=== PATIENT | female | born 1990 | race Caucasian/White ===

== ENCOUNTER 2025-10-16 02:21 | Day surgery (SDC) | payer OTHER, SELFPAY ==
--- OUTSIDE RECORDS SUMMARY | 2019-10-15 04:15 | XMS_ITS | Continuity of Care Document ---
Author Organization [facility] [employer] Address [address] [place] [address] Phone Care Team Providers Care Container Packer Operator Name Role Phone Adi Mckeon Unavailable Unavailable Allergies, Adverse Reactions, Alerts Substance Reaction Status Criticality No Known Allergies Active No Inform ation Medications Medication Instructions Dosage Dose Quantity Effective Dates (start - stop) Status Indication Fill Status Comments triamcinolon e acetonide 0.5 % topical cream apply by topical route 2 times every day a thin layer to the affected area(s) 25 MG 1 tablet 9 - Active amitriptylin e 25 mg tablet take 1 tablet by oral route every day at bedtime 25 MG 1 tablet - Active Procedures Procedure Date OFFICE/OUTPATIENT VISIT, [facility] Advance Directives Directive Yes / No Effective Date File Name No Information Encounters Encounter Description Practice Location Reason(s) For Visit Diagnoses Date Provider Encounter Disposition OFFICE/OUTPAT IENT VISIT, [facility] [employer] [facility], [address], [place], [place], [id number], [place] tel:[phone] [facility] to neck (chief complaint)1 (chief complaint) Other atopic dermatitis 9 Linda Joshi. [address] [facility], [place], [address], [place]. tel:[phone] Family History Family Member Type Diagnosis Age At Onset No Information Payers Payer name Insurance type Identifiers Authorization(s) [facility] [employer] Medicaid MC tatiana ID: [id number] Name: Coverage Status Eligibility Check on: UnknownRelationship to Subscriber: selfPayer Address: [address], [place], [place], [id number] Phone: Social History Type Description Quantity Date Captured Comments Alcohol Use Details No Caffeine Use Details tea > 32oz per day Tobacco Use Status Current non-smoker 19 Smoking Status Never smoker Non-Smoking Tobacco Use Details : No Details Available : No Details Available Sex Female Current Gender Female (finding) Vital Signs Date / Time: Height Weight BMI Pulse Rate Blood Pressure Temperature Respiratory Rate Body Surface Area Head Circumference Head Circ. Percentile Wt./Fran. Percentile BMI percentile Pulse Ox Inhaled Ox 10:41 AM 61.00 in 88.451 kg (195.00 lbs) 36.8 4 kg/m eter (2) 106 /min 110/70 mm[Hg] 97.90 F 18 /min 98 % 21 % Chief Complaint And Reason For Visit From encounter dated '10/15/2019 10:15'. areas to neck (chief complaint) 1 (chief complaint). Description: single erythematous patch to right side of neck for several weeksgetting larger no pain denies NVD fever or chills No med changes tried otc and rx meds no hx skin ca History Of Present Illness Encounter Date Complaint History Of Prese nt Illness 1 single erythemat ous patch to right side of neck for several weeks getting larger no pain denies NVD fever or chills No med changes tried otc and rx meds no hx skin ca areas to neck Functional Status Date Description Comments No Information Instructions Date Instruction Additional Infor mation The risks, benefits and side effects of treatment were discussed with the patient. Medication instructions were provided to the patient. The patient was advised to call the office if symptoms worsen or do not improve. Atopic dermatitis environmental changes reviewed in detail Age related routine medical screening reviewed and discussed in detail Asked to recheck in 1 month The patient verbalized an understanding of all instructions. Related to Other atopic dermatitis Assessments Type Assessment Date assessment Other atopic dermatitis 019 Mental Status Date Description Comments Orientation - Oriented to time, place, person, situation.
[2025-10-12 14:35] VITALS: BMI 29.9
--- NOTE | 2025-10-12 15:18 | PC.NURSE ---
[facility] has started construction of its new state of the art ER which will open Spring 2026. With this, we anticipate parking may be a challenge for some our surgical patients and families. Parking spaces are limited but are available for all Surgical, obstetrics, and ER patients sharing this lot. If you arrive and find you are having a hard time finding a parking space, please note that we understand the challenges, please drive around the hospital and park near Hospital Entrance 1. When you enter this entrance, you can ask a volunteer to direct or take you back to the surgical waiting area to check in. We appreciate everyone?s understanding of these expected challenges while we build for your future. Report to the Outpatient Waiting Room, entrance under the green pavilion located off [address], at time _10:00AM on date _10/16/25 . Planned Procedure Time: _12:00AM .? Time changes happen often and if your time is changed the preop area will call you the afternoon before. - You and your visitor will be asked to self-screen and do not enter if you have any COVID symptoms. Please call surgeon if you need to reschedule. - A mask is optional within the hospital at this time. Patients may have clear liquids (water, carbonated beverages, clear teas, apple juice) until 3 hours prior to surgery with a maximum of 20 ounces. - No food from midnight until time of surgery and no smoking, or chewing tobacco (or any form of nicotine). No chewing gum, candy or mints. Take only the following medications with a SIP of water on the morning of surgery: __HYDROCODONE/ACETAMINOPHEN, HYDRALAZINE DO NOT STOP ANY OF YOUR OTHER PRESCRIPTION MEDICATIONS PRIOR TO SURGERY EXCEPT THE FOLLOWING Hold all vitamins and supplements for 3 days per anesthesiologist. Medications to discontinue per physician NONE Date to take last dose Please no make-up, nail bulgarian, hairspray, perfume, deodorant, or body powder the day of surgery.? No jewelry (including any body piercings) or valuables the day of surgery, leave them at home.? Please take a shower or bath the night before, or the morning of, surgery with an antibacterial soap.? Wear comfortable, loose fitting clothing.? - Jewelry must be removed prior to entering the operating room.? Rings and piercings that are not removed may be cut off. - The hospital will not accept responsibility for valuables.? - Please leave all valuables, including medications, at home the day of surgery. If you are going home after surgery, a licensed coach tour driver must drive you home.? - NO public transportation without another adult if you receive anesthesia. - We recommend that an adult stay with you for 24 hours following discharge. - We also recommend that you do not drive, make important decision, drink alcoholic beverages, or take any drugs that were not prescribed by your health care provider for at least 24 hours after your discharge time. Follow any additional instructions given to you from your surgeon. Telephone instructions given to ALLISON MULLER and asked if any additional questions and then verbalized understanding. Patient advised to call surgeon office or pre surgery nurse liaison [phone] if any additional questions.
[2025-10-16] VITALS (9 sets, daily range): BP systolic 94–148; BP diastolic 61–84; PULSE 63–105; RESP 10–18; TEMP 36.4–37; O2SAT 92–100
--- OUTSIDE RECORDS SUMMARY | 2025-10-16 02:24 | XMS_ITS | Encounter Summary ---
Author Organization [facility] Address [address] [place] [address] Care Team Providers Care Correctional Facility Nurse Name Role Phone NasDavid mccurdy TAMMI Primary Care Provider [phone] Encounter Details Date Type Department Care Team (Late Contact Info) Description 04/09/2019 Orders Only [facility] Medical Group Urology [address] [place] [address] Grams, John A, FROG OR OYSTER FARMWORKER Gross hematuria Social History Tobacco Use Types Packs/Day Years Used Date Smoking Tobacco: Every Day Cigarettes 0.3 20.9 Started: 2004 Smokeless Tobacco: Never Alcohol Use Standard Drinks/Week Comments No 0 (1 standard drink = 0.6 oz pur e alcohol) in the past AUDIT-C Answer Date Recorded Frequency of Alcohol Consumption Never 04/08/2019 Average Number of Drinks Not on file 019 Frequency of Binge Drinking Not on file 02/2019 Comments No Sex and Gender Information Value Date Recorded Sex Assigned at Female 05/11/2022 9:16 AM CDT Legal Sex Female 9:12 PM CDT Gender Identity Female 05/11/2022 9:16 AM CDT Sexual Orientation Straight 05/11/2022 9: 16 AM CDT 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 Not on file Not on jhonatan e documented as of this encounter Plan of Treatment Upcoming Encounters Date Type Department Care Team (Late Contact Info) Description 11/18/2025 11:30 AM SLITTER PROCESSED FILM Office Visit [facility] Interventional Pain Management [address] [place] [address] Brant Portillo PA [address] [place] [address] 11/25/2025 9:00 AM SLITTER PROCESSED FILM Office Visit [facility] Medical Group Family Medicine [address] [place] [address] David Vegas NP [address] [place] [address] documented as of this encounter Procedures Procedure Name Priority Date/Time Associated Diagnosis Comments URINALYSIS, CULTURE IF INDICATED Routine 04/09/2019 10:51 AM CDT Gross hematuria documented in this encounter Results * Urinalysis, Culture if Indicated (04/09/2019 10:51 AM CDT) Color, Urine Yellow Colorless, Light Yellow, Yellow, Shantal 04/09/2019 2:33 PM T [facility] Appearance, Urine Clear Clear 04/09/2019 2:33 PM [facility] Glucose, Urine Negative Negative mg/dL 04/09/2019 2:33 PM [facility] Bilirubin, Urine Negative Negative 04/09/20 19 2:33 PM [facility] Ketone Negative Negative mg/dL 04/09/2019 2:33 PM [facility] Specific [place],Urine 1.010 1.010 - 1.025 04/09/2019 2:33 PM [facility] Occult Blood Urine Negative Negative 04/09/2019 2:33 PM [facility] pH,Urine 6.5 5 - 8 [pH] 04/09/2019 2:33 PM [facility] Protein, Urine Negative Negative mg/dL 04/09/2019 2:33 PM [facility] Urobilinogen 0.2 <1.1 mg/dL 04/09/2019 2:33 PM [facility] Nitrite, Urine Negative Negative 04/09/2019 2:33 PM [facility] Leukocyte Esterase, Urine Negative Negative 04/09/2019 2:33 PM [facility] Urine specimen (specimen) Voided urine specimen / Unknown 04/09/2019 10:51 AM CDT 04/09/2019 2:13 PM CDT us Milo Hyde MD LAB URINE ORDERABLES Final R esult Performing Organization Address City/State/[facility] Co de Phone Number [address] [address] documented in this encounter Visit Diagnoses Diagnosis Gross hematuria documented in this encounter Additional Health Concerns Infection Onset Date Last Indicated Resolved Time PreProcedure Screening COVID-19 10/02/2021 10/02/2021 7:13 PM SLITTER PROCESSED FILM R/O COVID-19 11/08/2021 11/08/2021 11/08/2021 11:0 0 AM SLITTER PROCESSED FILM R/O Resp Infection 11/08/2021 11/08/2021 10:59 AM SLITTER PROCESSED FILM COVID-19 11/08/2021 11/08/2021 02/06/2022 12:2 1 AM CDT R/O COVID-19 05/10/2022 05/10/2022 05/10/2022 9:45 AM CDT R/O COVID-19 05/10/2022 05/10/2022 05/10/2022 10:3 4 AM CDT R/O COVID-19 Comment:Covid negative 05/10/22 0945 05/11/2022 05/11/2022 05/11/2022 3:04 AM C DT R/O COVID-19 06/25/2024 06/25/2024 06/25/2024 10:0 3 AM CDT R/O GI Infection 06/25/2024 06/25/2024 06/25/2024 12:13 PM CDT COVID-19 06/25/2024 06/25/2024 09/23/2024 12:2 1 AM SLITTER PROCESSED FILM documented as of this encounter Care Teams Correctional Facility Nurse Relationship Specialty Start Date End Date David Vegas NP [address] [place] [address] PCP - General Nurse Practitioner 08/31/25 documented as of this encounter
--- OUTSIDE RECORDS SUMMARY | 2025-10-16 02:24 | XMS_ITS | Encounter Summary ---
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 [address] documented as of this encounter Visit Diagnoses Diagnosis Recurrent UTI Urinary tract infection, site not specified documented in this encounter Additional Health Concerns Infection Onset Date Last Indicated Resolved Time PreProcedure Screening COVID-19 10/02/2021 10/02/2021 7:13 PM MEDICAL DEVICE ASSEMBLER R/O COVID-19 11/08/2021 11/08/2021 11/08/2021 11:0 0 AM MEDICAL DEVICE ASSEMBLER R/O Resp Infection 11/08/2021 11/08/2021 10:59 AM MEDICAL DEVICE ASSEMBLER COVID-19 11/08/2021 11/08/2021 02/06/2022 12:2 1 AM CDT R/O COVID-19 05/10/2022 05/10/2022 05/10/2022 9:45 AM CDT R/O COVID-19 05/10/2022 05/10/2022 05/10/2022 10:3 4 AM CDT R/O COVID-19 Comment:Covid negative 05/10/22 0945 05/11/2022 05/11/2022 05/11/2022 3:04 AM C DT R/O COVID-19 06/25/2024 06/25/2024 06/25/2024 10:0 3 AM CDT R/O GI Infection 06/25/2024 06/25/2024 06/25/2024 12:13 PM CDT COVID-19 06/25/2024 06/25/2024 09/23/2024 12:2 1 AM MEDICAL DEVICE ASSEMBLER documented as of this encounter Care Teams Director Emergency Services Relationship Specialty Start Date End Date David Vegas NP [address] [place] [address] PCP - General Nurse Practitioner 08/31/25 documented as of this encounter
--- OUTSIDE RECORDS SUMMARY | 2025-10-16 02:24 | XMS_ITS | Encounter Summary ---
Author Organization [facility] Address [facility] [place] [address] Care Team Providers Care Repairer Evaporator Name Role Phone David Vegas NP Primary Care Provider [phone] Reason for Visit * Reason Onset Date Comments Med Refill 03/03/2025 Encounter Details Date Type Department Care Team (Late st Contact Info) Description 03/03/2025 Refill [facility] Medical Group Family Medicine [address] [place] [phone] David Vegas NP [address] [place] [address] Social History Tobacco Use Types Packs/Day Years Used Date Smoking Tobacco: Former Cigarettes 0.3 16.4 2 005 - 04/18/2021 Smokeless Tobacco: Never Alcohol Use Standard Drinks/Week Comments Yes 0 (1 standard drink = 0.6 oz pur e alcohol) rarely AUDIT-C Answer Date Recorded Q1: How often do you have a drink containing alcohol? Never 10/16/2022 Q2: How many drinks containi ng alcohol do you have on a typical day when you are drinking? Patient does not drink Q3: How often do you have si x or more drinks on one occasion? Never 10/16/2022 PHQ-2 Answer Date Recorded Patient Health Questionnaire-2 Score 0 10/01/2024 Hunger Vital Sign Answer Date Recorded Within the past 12 months, y ou worried that your food would run out before you got the money to buy more. Never true 10/16/20 22 Within the past 12 months, t he food you bought just didn't last and you didn't have money to get more. Never true 10/16/2022 PRAPARE - Transportation Answer Date Re corded In the past 12 months, has l ack of transportation kept you from medical appointments or from getting medications? No 10/05 In the past 12 months, has l ack of transportation kept you from meetings, work, or from getting things needed for daily living? 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 Not on file Not on jhonatan e documented as of this encounter Plan of Treatment Upcoming Encounters Date Type Department Care Team (Late st Contact Info) Description 11/18/2025 11:30 AM LOOP MACHINE OPERATOR Office Visit [facility] Interventional Pain Management [address] [place] [address] Brant Portillo PA [address] [place] [address] 11/25/2025 9:00 AM LOOP MACHINE OPERATOR Office Visit [facility] Medical Group Family Medicine [address] [place] [address] David Vegas NP [address] [place] [address] documented as of this encounter Visit Diagnoses Not on filedocumented in this encounter Care Teams Repairer Evaporator Relationship Specialty Start Date End Date David Vegas NP [address] [place] [address] PCP - General Nurse Practitioner 08/31/25 documented as of this encounter
--- OUTSIDE RECORDS SUMMARY | 2025-10-16 02:24 | XMS_ITS | Encounter Summary ---
Author Organization [facility] Address [address] [place] [address] Care Team Providers Care Medical Safety Director Name Role Phone David Vegas NP Primary Care Provider [phone] Reason for Referral * MRI/CT (Routine) - Closed Specialty Diagnoses / Procedures Referred By Jaqueline santos Referred To Contact Diagnoses Kidney calculus Procedures CT abdomen pelvis wo contrast Frank Grace PA Phone: tel: fax: Frank Grace PA Phone: tel: fax: Referral ID Status Reason Start Date Expiration Date Visits Re quested Visits Authorized [id number] Closed 04/06/2020 04/06/2021 1 1 Encounter Details Date Type Department Care Team (Late st Contact Info) Description 04/06/2020 Orders Only [facility] Medical Group Urology [address] [place] [phone] Frank Grace PA [address] [place] [phone] Kidney calculus (Primary Dx); Urinary tract infection without hematuria, site unspecified Social History Tobacco Use Types Packs/Day Years [...] 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 Not on file Not on jhonatan e documented as of this encounter Plan of Treatment Upcoming Encounters Date Type Department Care Team (Late st Contact Info) Description 11/18/2025 11:30 AM IT TRAINING SPECIALIST Office Visit [facility] Interventional Pain Management [address] [place] [address] Brant Portillo PA [address] [place] [address] 11/25/2025 9:00 AM IT TRAINING SPECIALIST Office Visit [facility] Medical Group Family Medicine [address] [place] [address] David Vegas NP [address] [place] [address] Scheduled Orders Name Type Priority Associated Diagnoses Orde r Schedule CT abdomen pelvis wo contrast Imaging Routine Kidney calculus Expected: 04/06/2020, Expires: 10/06/2021 Urinalysis, Culture if Indicated Lab Routine Urinary tract infection without hematuria, site unspecified 1 Occurrences starting 04/06/2020 until 04/06/2021 documented as of this encounter Visit Diagnoses Diagnosis Kidney calculus- Primary Calculus of kidney Urinary tract infection without hematuria, site unspecified documented in this encounter Additional Health Concerns Infection Onset Date Last Indicated Resolved Time PreProcedure Screening COVID-19 10/02/2021 10/02/2021 7:13 PM IT TRAINING SPECIALIST R/O COVID-19 11/08/2021 11/08/2021 11/08/2021 11:0 0 AM IT TRAINING SPECIALIST R/O Resp Infection 11/08/2021 11/08/2021 10:59 AM IT TRAINING SPECIALIST COVID-19 11/08/2021 11/08/2021 02/06/2022 12:2 1 AM CDT R/O COVID-19 05/10/2022 05/10/2022 05/10/2022 9:45 AM CDT R/O COVID-19 05/10/2022 05/10/2022 05/10/2022 10:3 4 AM CDT R/O COVID-19 Comment:Covid negative 05/10/22 0945 05/11/2022 05/11/2022 05/11/2022 3:04 AM C DT R/O COVID-19 06/25/2024 06/25/2024 06/25/2024 10:0 3 AM CDT R/O GI Infection 06/25/2024 06/25/2024 06/25/2024 12:13 PM CDT COVID-19 06/25/2024 06/25/2024 09/23/2024 12:2 1 AM IT TRAINING SPECIALIST documented as of this encounter Care Teams Medical Safety Director Relationship Specialty Start Date End Date David Vegas NP [address] [place] [address] PCP - General Nurse Practitioner 08/31/25 documented as of this encounter
--- OUTSIDE RECORDS SUMMARY | 2025-10-16 02:24 | XMS_ITS | Clinical Summary ---
Author Organization [facility] [employer] [facility] [place] Address [address] [place] [address] Care Team Providers Care Diesel Pile Hammer Operator Name Role Phone Samy Travis MD Primary Care Provider [phone] Source Comments [facility] [employer] [facility],non-owned Affiliates and Associated Physician Practices is amultiple site organization consisting of ambulatory clinics and hospital sitesin [place], [place] and [place]. This disclosure is being madepursuant to the Care Everywhere program and may not contain all information available regarding this patient. Last updated 18.[employer] [facility] Allergies Active Allergy Reactions Criticality Noted Date Comments Sumatriptan Other 09/11/2016 Heart race Medications * Be aware that medications may not be up to date on this document. Alwaysverify current medications with the patient. citalopram (CELEXA) 10 MG tablet Take 10 mg by mouth at bedtime Active HYDROcodone-nehemias taminophen (NORCO) 5-325 MG tabletIndicatio ns:Menorrhagia with irregular cycle Take 1 Tab by mouth every 4 hours as needed 40 Tab 6 Active Additional Information Patient not taking.Reported on 04/30/2021 ibuprofen (MOTRIN) 600 MG tablet Take 1 Tab by mouth every 6 hours as needed for Pain 50 Tab 6 Active Additional Information Patient not taking.Reported on 04/30/2021 docusate sodium (COLACE) 100 MG capsuleIndicati ons:Menorrhagia with irregular cycle Take 1 Cap by mouth 2 times daily 50 Cap 6 Active Additional Information Patient not taking.Reported on 04/30/2021 albuterol HFA (PROVENTIL;VENT TREV;PROAIR) 108 (90 Base) MCG/ACT inhaler Inhale 2 (two) puffs by mouth every 4 hours as needed 1 g 1 Active pantoprazole EC (PROTONIX) 40 MG tablet Take 1 (one) tablet by mouth once daily 10 tablet 1 Active methylPREDNISol one (MEDROL DOSEPAK) 4 MG tablet Take 1 (one) tablet by mouth as directed 21 tablet 1 Active azithromycin (ZITHROMAX) 250 MG tablet Take 2 tablets on day 1, then take 1 tablet daily for 4 days 6 tablet 1 Active benzonatate (TESSALON PERLES) 100 MG capsule Take 1 (one) capsule to 2 (two) capsules by mouth 3 times daily as needed for Cough 30 capsule 1 Active ondansetron (ZOFRAN) 4 MG tablet Take 1 (one) tablet by mouth every 6 hours as needed for Nausea/Vomiting 10 tablet 1 Active HYDROcodone-nehemias taminophen (NORCO) 5-325 MG tablet Take 1 (one) tablet by mouth every 8 hours as needed for Pain 15 tablet 2 Active tamsulosin (FLOMAX) 0.4 MG capsule Take 1 (one) capsule by mouth once daily Take 30 minutes after a meal at the same time each day. 30 capsule 2 Active Active Problems Problem Noted Date Diagnosed Date Normal delivery at term 06/22/2016 Irregular contractions 03/08/2016 Immunizations Immunization Administration Dates Next Due MMR 06/21/2016 TDAP (7yrs+) 06/21/2016 Family History Medical History Relation Name Comments Arthritis Father Diabetes Father Hypertension Father Arthritis Maternal Grandfather Cancer Maternal Grandfather Arthritis Maternal Grandmother Diabetes Maternal Grandmother Genetic/Metabolic Disease Maternal Grandmother Hypertension Maternal Grandmother Arthritis Mother Genetic/Metabolic Disease Mother Kidney Disease Mother Labor Mother Arthritis Paternal Grandfather Arthritis Paternal Grandmother Diabetes Paternal Grandmother Heart Disease Paternal Grandmother Stroke Paternal Grandmother Relation Name Status Comments Father Maternal Grandfather Maternal Grandmother Mother Paternal Grandfather Paternal Grandmother Social History Tobacco Use Types Packs/Day Years Used Date Smoking Tobacco: Former Cigarettes 0 Q uit: 09/23/2015 Smokeless Tobacco: Never Alcohol Use Standard Drinks/Week Comments No 0 (1 standard drink = 0.6 oz pur e alcohol) AUDIT-C Answer Date Recorded Q1: How often do you have a drink containing alc ohol? 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 Gender Identity Not on file Sexual Orientation Not on file Last Filed Vital Signs Vital Sign Reading Time Taken Comments Blood Pressure 109/67 05/07/2022 4:01 AM CDT Pulse 71 05/07/2022 2:14 AM CDT Temperature 36.7 C (98 F) 05/07/2022 2:14 AM CDT Respiratory Rate 18 05/07/2022 2:14 AM CDT Oxygen Saturation 96% 05/07/2022 4:25 AM CDT Inhaled Oxygen Concentration 99% 06/13/2021 1 :40 PM CDT Weight 77.4 kg (170 lb 10.2 oz) 05/07/2022 2:14 AM CDT Height 154.9 cm (5' 1) 05/07/2022 2:14 AM CDT Body Mass Index 32.24 05/07/2022 2:14 AM CDT Plan of Treatment Health Maintenance Due Date Last Done Comments HEPATITIS C SCREENING 03/04/2008 HEPATITIS B VACCINE (1 of 3 - 19+ 3-dose series) 2009 HPV VACCINE (1 - 3-dose SCDM series) 2017 DEPRESSION SCREENING 11/05/2024 COVID-19 VACCINE ( - 2024- season) 2025 INFLUENZA VACCINE (#1) 2025 , 09/03/2018, 08/25/2016, Additional history exists DTAP/TDAP/TD VACCINES (2 - Td or Tdap) 06/21/2026 06/21/2016 ZOSTER VACCINE (1 of 2) 2040 HIV SCREENING Completed 06/20/2016 HIB VACCINE Aged Out No longer eligi ble based on patient's age to complete this topic MENINGOCOCCAL (Group B) VACCINE SHARED DECISION-MAKING Aged Out No longer eligible based on patient's age to complete this topic MENINGOCOCCAL GROUPS A/C/Y/W VACCINE Aged Out No longer eligible based on patient's age to complete this topic PNEUMOCOCCAL VACCINE Aged Out No long er eligible based on patient's age to complete this topic Procedures Procedure Name Priority Date/Time Associated Diagnosis Comments HIV-1 ANTIBODY Timed 06/20/2016 5:01 PM CDT from Last 3 Months or Most Recently Relevant to Health Maintenance Results * HIV-1 ANTIBODY (06/20/2016 5:01 PM CDT) HIV-1/HIV-2 Non Reactive Non Reactive 06/20/2016 6:33 PM CDT [facility] Blood BLOOD SPECIMEN / Unknown Lab Venipuncture / Unknown 06/20/2016 5:01 PM CDT 06/20/2016 5:34 PM CDT Alfredito Flynn MD LAB - CHEMISTRY ORDERABLES F inal Result Performing Organization Address [facility]/State/[facility] Co de Phone Number [facility] [address] from Last 3 Months or Most Recently Relevant to Health Maintenance Insurance [facility] Advance Directives * Full Code (Latest Code Status on File) Date Activated Date Inactivated Comments 09/14/2016 4:12 PM 09/15/2016 11:55 AM * Full Code Date Activated Date Inactivated Comments 06/30/2016 1:36 PM 06/30/2016 4:40 PM * Full Code Date Activated Date Inactivated Comments 06/20/2016 3:30 PM 06/23/2016 12:41 PM * Full Code Date Activated Date Inactivated Comments 06/20/2016 3:26 PM 06/20/2016 3:30 PM * Full Code Date Activated Date Inactivated Comments 05/28/2016 11:04 PM 05/29/2016 1:18 AM Care Teams Diesel Pile Hammer Operator Relationship Specialty Start Date End Date Samy Travis MD PCP - General Family Medicine 05/07/22
--- OUTSIDE RECORDS SUMMARY | 2025-10-16 02:24 | XMS_ITS | Clinical Summary ---
Author Organization [facility] Address [address] [place] [address] Care Team Providers Care Media Relations Associate Name Role Phone Samy Travis MD Primary Care Provider [phone] Allergies Active Allergy Reactions Criticality Noted Date Comments Aripiprazole Other (see comment) Low 11/24/2014 SUICIDAL THOUGHTS Duloxetine Hcl Rash Medium 04/19/2021 Sumatriptan Palpitations Medium 11/24/2014 Medications albuterol sulfate HFA 108 (90 Base) MCG/ACT inhaler Inhale 2 puffs every 6 (six) hours as needed for wheezing Active amitriptyline 25 MG tablet Take 50 mg by mouth nightly at bedtime. 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 Gender Identity Not on file Sexual Orientation Not on file Last Filed Vital Signs Vital Sign Reading Time Taken Comments Blood Pressure 120/70 04/22/2021 10:53 AM CDT Pulse 88 04/22/2021 10:53 AM CDT Temperature - - Respiratory Rate - - Oxygen Saturation 99% 04/22/2021 10: 53 AM CDT Inhaled Oxygen Concentration - - Weight 109.1 kg (240 lb 9.6 oz) 021 10:53 AM CDT Height 157.5 cm (5' 2) 04/22/2021 10:5 3 AM CDT Body Mass Index 44.01 04/22/2021 10:53 AM CDT Plan of Treatment Health Maintenance Due Date Last Done Comments Annual Physical 1993 Hepatitis C 2008 Hepatitis B Vaccines (1 of 3 - 19+ 3-dose series) 2009 HPV Vaccines (1 - 3-dose SCDM series) 2017 COVID-19 Vaccine ( - season) 2025 Influenza Adult (#1) 2025 09/03/2018, 08/25/2016, 08/25/2015, Additional history exists DTaP, Tdap and Td Vaccines (4 - Td or Tdap) 06/21/2026 06/21/2016, 04/19/2016, 12/31/2012 Pneumococcal Vaccine: Pediatrics (0 to 5 Years) and At-Risk Patients (6 to 49 Years) Aged Out 06/25/2018 No longer eligible based on patient's age to complete this topic Hepatitis A Vaccines Aged Out No long er eligible based on patient's age to complete this topic Meningococcal B Vaccine Aged Out No l onger eligible based on patient's age to complete this topic Meningococcal Vaccine Aged Out No raymond vibha eligible based on patient's age to complete this topic RSV Immunizations Under 20 Months Aged Out No longer eligible based on patient's age to complete this topic Insurance MEDICAID Care Teams Media Relations Associate Relationship Specialty Start Date End Date Samy Travis MD PCP - General FAMILY PRACTICE 10/15/18
--- OUTSIDE RECORDS SUMMARY | 2025-10-16 02:24 | XMS_ITS | Encounter Summary ---
Author Organization [facility] Address [address] [place] [address] Care Team Providers Care Archival Studies Professor Name Role Phone David Vegas NP Primary Care Provider [phone] Encounter Details Date Type Department Care Team ([facility] st Contact Info) Description 06/15/2023 Orders Only [facility] Medical [facility] Neurology [address] [facility] [address] [place] [address] Rasheed Jackson PA [address] [facility] [address] [place] [address] Paresthesia of bilateral legs Social History Tobacco Use Types Packs/Day Years [...] occasion? 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 No / Unsure 05/22/2023 2:45 PM CDT documented as of this encounter Plan of Treatment Upcoming Encounters Date Type Department Care Team (Late st Contact Info) Description 11/18/2025 11:30 AM NUT CULLER Office Visit [facility] Interventional Pain Management [address] [place] [address] Brant Portillo PA [address] [place] [address] 11/25/2025 9:00 AM NUT CULLER Office Visit [facility] Medical Group Family Medicine [address] [place] [address] David Vegas NP [address] [place] [address] documented as of this encounter Procedures Procedure Name Priority Date/Time Associated Diagnosis Comments EMG Routine 06/15/2023 2:39 PM CDT Paresthesia of bilateral legs documented in this encounter Results * EMG (06/15/2023 2:39 PM CDT) Rasheed [facility]NE NEUROLOGY ORDERABLES Final R esult documented in this encounter Visit Diagnoses Diagnosis Paresthesia of bilateral legs documented in this encounter Additional Health Concerns Infection Onset Date Last Indicated Resolved Time R/O COVID-19 06/25/2024 06/25/2024 06/25/2024 10:0 3 AM CDT R/O GI Infection 06/25/2024 06/25/2024 06/25/2024 12:13 PM CDT COVID-19 06/25/2024 06/25/2024 09/23/2024 12:2 1 AM NUT CULLER documented as of this encounter Care Teams Archival Studies Professor Relationship Specialty Start Date End Date David Vegas NP [address] [place] [address] PCP - General Nurse Practitioner 08/31/25 documented as of this encounter
--- OUTSIDE RECORDS SUMMARY | 2025-10-16 02:24 | XMS_ITS | Encounter Summary ---
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 Not on file Not [...] st Contact Info) Description 11/18/2025 11:30 AM SINGING TELEGRAM PERFORMER Office Visit [facility] Interventional Pain Management [address] [place] [address] Brant Portillo PA [address] [place] [address] 11/25/2025 9:00 AM SINGING TELEGRAM PERFORMER Office Visit [facility] Medical Group Family Medicine [address] [place] [address] David Vegas NP [address] [place] [address] documented as of this encounter Visit Diagnoses Not on filedocumented in this encounter Additional Health Concerns Infection Onset Date Last Indicated Resolved Time R/O COVID-19 06/25/2024 06/25/2024 06/25/2024 10:0 3 AM CDT R/O GI Infection 06/25/2024 06/25/2024 06/25/2024 12:13 PM CDT COVID-19 06/25/2024 06/25/2024 09/23/2024 12:2 1 AM SINGING TELEGRAM PERFORMER documented as of this encounter Care Teams Melter Caster Relationship Specialty Start Date End Date David Vegas NP [address] [place] [address] PCP - General Nurse Practitioner 08/31/25 documented as of this encounter
--- OUTSIDE RECORDS SUMMARY | 2025-10-16 02:24 | XMS_ITS | Encounter Summary ---
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 Not on file Not on jhonatan e documented as of this encounter Plan of Treatment Upcoming Encounters Date Type Department Care Team (Late st Contact Info) Description 11/18/2025 11:30 AM INDIAN NANNY Office Visit [facility] Interventional Pain Management [address] [place] [address] Brant Portillo PA [address] [place] [address] 11/25/2025 9:00 AM INDIAN NANNY Office Visit [facility] Medical Group Family Medicine [address] [place] [address] David Vegas NP [address] [place] [address] documented as of this encounter Results * (ABNORMAL) Urinalysis, Culture if Indicated (09/04/2019 2:57 PM CDT) Color, Urine Yellow Colorless, Light Yellow, Yellow, Shantal 09/04/2019 5:39 PM T [facility] Appearance, Urine Clear Clear 09/04/2019 5:39 PM T [facility] Glucose, Urine Negative Negative mg/dL 09/04/2019 5:39 PM T [facility] Bilirubin, Urine Negative Negative 09/04/20 19 5:39 PM T [facility] Ketone Negative Negative mg/dL 09/04/2019 5:39 PM [facility] Specific [place],Urine 1.015 1.010 - 1.025 09/04/2019 5:39 PM T [facility] Occult Blood Urine Negative Negative 09/04/2019 5:39 PM T [facility] pH,Urine 7.5 5 - 8 [pH] 09/04/2019 5:39 PM CDT [facility] Protein, Urine Negative Negative mg/dL 09/04/2019 5:39 PM [facility] Urobilinogen 1.0 <1.1 mg/dL 09/04/2019 5:39 PM T [facility] Nitrite, Urine Positive(A) Negative 9 5:39 PM [facility] Leukocyte Esterase, Urine Trace(A) Negative 09/04/2019 5:39 PM [facility] Urine specimen (specimen) Voided urine specimen / Unknown 09/04/2019 2:57 PM CDT 09/04/2019 2:57 PM CDT [facility] - 09/04/2019 5:39 PM CDT A Urine Culture was added based on abnormal Urinalysis results - Alli Man M.D. us Frank [facility] LAB URINE ORDERABLES Final Resu lt Performing Organization Address City/State/[facility] Co de Phone Number [address] [address] documented in this encounter Visit Diagnoses Diagnosis Chronic interstitial cystitis without hematuria- Primary documented in this encounter Additional Health Concerns Infection Onset Date Last Indicated Resolved Time PreProcedure Screening COVID-19 10/02/2021 10/02/2021 7:13 PM INDIAN NANNY R/O COVID-19 11/08/2021 11/08/2021 11/08/2021 11:0 0 AM INDIAN NANNY R/O Resp Infection 11/08/2021 11/08/2021 10:59 AM INDIAN NANNY COVID-19 11/08/2021 11/08/2021 02/06/2022 12:2 1 AM CDT R/O COVID-19 05/10/2022 05/10/2022 05/10/2022 9:45 AM CDT R/O COVID-19 05/10/2022 05/10/2022 05/10/2022 10:3 4 AM CDT R/O COVID-19 Comment:Covid negative 05/10/22 0945 05/11/2022 05/11/2022 05/11/2022 3:04 AM C DT R/O COVID-19 06/25/2024 06/25/2024 06/25/2024 10:0 3 AM CDT R/O GI Infection 06/25/2024 06/25/2024 06/25/2024 12:13 PM CDT COVID-19 06/25/2024 06/25/2024 09/23/2024 12:2 1 AM INDIAN NANNY documented as of this encounter Care Teams Floor Nurse Relationship Specialty Start Date End Date David Vegas NP [address] [place] [address] PCP - General Nurse Practitioner 08/31/25 documented as of this encounter
--- OUTSIDE RECORDS SUMMARY | 2025-10-16 02:24 | XMS_ITS | Clinical Summary ---
Author Organization [facility] Address [address] [place] [address] Care Team Providers Care Customer Services Supervisor Name Role Phone MarinaJose Martin STEWARD/STEWARDESS SMOKE ROOM Primary Care Provider Allergies Active Allergy Reactions Criticality Noted Date Comments Aripiprazole Other/Unknown (See Comments) Low 11/24/2014 - SUICIDAL THOUGHTS Duloxetine Rash Medium 08/26/2019 - Gabapentin Diarrhea Low 04/19/2022 Sumatriptan Other/Unknown (See Comments),Palpitations Medium 11/24/2014 - IMITREX Heart race Medications phenazopyridine (PYRIDIUM) 200 MG tablet Take 1 tablet (200 mg) by mouth 3 times daily 03/11/2020 Active dicyclomine (BENTYL) 10 MG capsule Take 1 capsule (10 mg) by mouth 4 times daily (before meals and nightly) Active albuterol 108 (90 Base) MCG/ACT inhaler Inhale 2 puffs by mouth every 4 hours as needed 05/02/2021 Active Multiple Vitamin (MULTIVITAMIN) tablet Take 1 tablet by mouth daily Active HYDROcodone-nehemias taminophen (NORCO) 10-325 MG per tablet Take 1 tablet by mouth 2 times daily as needed 04/06/2025 Active omeprazole (PRILOSEC) 20 MG capsule Take 1 capsule (20 mg) by mouth daily Active spironolactone (ALDACTONE) 25 MG tablet Take 2 tablets (50 mg) by mouth 04/10/2025 Active hydrOXYzine (ATARAX) 25 MG tablet Take 1 tablet (25 mg) by mouth 3 times daily as needed 04/06/2025 Active Active Problems Problem Noted Date Diagnosed Date Class 1 obesity in adult 04/15/2025 Radiculopathy of lumbar region 04/15/2025 Spinal stenosis of lumbar region 04/15/2025 Facet arthropathy, lumbar 04/15/2025 Sacroiliitis 11/06/2024 Degeneration of intervertebral disc of lumbar re gion 03/20/2024 Anxiety 10/05/2023 Herniated nucleus pulposus, L4-5 right Panniculitis 08/15/2022 Overview (04/15/2025): Added automatically from request for surgery [id number] Calculus of distal left ureter 05/10/2022 Overview (04/15/2025): Added automatically from request for surgery [id number] Hydronephrosis, left 05/10/2022 Intractable pain 05/10/2022 SIRS (systemic inflammatory response syndrome) 0 05/10/2022 Recurrent pneumonia 01/09/2022 S/P laparoscopic sleeve gastrectomy 10/19/2021 Chronic migraine 02/02/2021 Depression with anxiety 02/02/2021 Polyarthritis 02/02/2021 Complicated UTI (urinary tract infection) 2019 Chronic interstitial cystitis without hematuria 08/11/2019 Encounter for surgical after care following surgery on the genitourinary system 05/27/2019 Overview (04/15/2025): Encounter for surgical aftercare following surgery on the genitourinary system; Progress: Stable Added By: Noemi Deluna Add to Current Problems: YES ProblemStatus: Current Follicular cyst of ovary 09/22/2018 Overview (04/15/2025): Ovarian cyst; Progress: Stable Added By: Symone Ramos Add to Current Problems: NO ProblemStatus: Resolve Ovarian cyst; Location: None Progress: Stable Added By: Symone Ramos Add to Current Problems: YES ProblemStatus: Current Unspecified ovarian cysts; Progress: Stable Added By: Symone Ramos Add to Current Problems: NO ProblemStatus: Resolve Diarrhea 02/20/2018 Overview (04/15/2025): Diarrhea, unspecified; Progress: Stable Added By: Kelly Olivera Add to Current Problems: NO ProblemStatus: Resolve Diarrhea; Location: None Progress: Stable Added By: Kelly Olivera Add to Current Problems: YES ProblemStatus: Resolve Dysuria 02/15/2018 Overview (04/15/2025): Dysuria; Progress: Stable Added By: Nisha Ly Add to Current Problems: NO ProblemStatus: Resolve Painful micturition, unspecified; Progress: Stable Added By: Nisha Ly Add to Current Problems: NO ProblemStatus: Resolve Female genital symptoms 01/21/2018 Overview (04/15/2025): Pelvic pain; Location: None Progress: Stable Added By: Kelly Olivera Add to Current Problems: YES ProblemStatus: Resolve Encounter for follow-up exam ination after completed treatment for conditions other than malignant neoplasm 09/24/2016 Overview (04/15/2025): Encounter for follow-up examination after completed treatment for conditions other than malignant neoplasm; Progress: Stable Added By: Kelly Olivera Add to Current Problems: NO ProblemStatus: Resolve Endometriosis of uterus 09/10/2016 Overview (04/15/2025): Endometriosis of uterus; Location: None Progress: Stable Added By: Terri Alfaro Add to Current Problems: YES ProblemStatus: Resolve Excessive and frequent menstruation with regular cycle 08/09/2016 Overview (04/15/2025): Excessive and frequent menstruation with regular cycle; Progress: Stable Added By: Kelly Olivera Add to Current Problems: NO ProblemStatus: Resolve Menorrhagia 08/09/2016 Overview (04/15/2025): Menorrhagia; Progress: Stable Added By: Kelly Olivera Add to Current Problems: NO ProblemStatus: Resolve Uterine size-date discrepancy, third trimester 0 05/03/2016 Overview (04/15/2025): Uterine size date discrepancy, antepartum condition or complication; Location: None Progress: Stable Added By: Symone Campuzano Add to Current Problems: YES ProblemStatus: Resolve Uterine size date discrepancy, antepartum condition or complication; Location: None Progress: Stable Added By: Symone Campuzano Add to Current Problems: YES ProblemStatus: Resolve; Start Date : 05/03/2016 Abnormal glucose complicating 04/19/20 16 Overview (04/15/2025): Abnormal glucose complicating ; Progress: Stable Added By: Kerrie King Add to Current Problems: NO ProblemStatus: Resolve Abdominal pain 12/16/2015 Overview (04/15/2025): Abdominal cramping; Severity: Moderate Progress: Stable Added By: Kelly Olivera Add to Current Problems: NO ProblemStatus: Resolve Pelvic and perineal pain 12/16/2015 Overview (04/15/2025): Pelvic and perineal pain; Severity: Moderate Progress: Stable Added By: Lety Melo Add to Current Problems: YES ProblemStatus: Current 12/16/2015 Overview (04/15/2025): Incidental ; Location: None Progress: Stable Added By: Kerrie Underwood Add to Current Problems: YES ProblemStatus: Resolve 36 weeks gestation of 11/07/2015 Overview (04/15/2025): 36 weeks gestation of ; Progress: Stable Added By: Kacey Gill Add to Current Problems: NO ProblemStatus: Resolve screening; unspecified; Location: None Progress: Stable Added By: Kacey Gill Add to Current Problems: YES ProblemStatus: Resolve 36 weeks gestation of ; Progress: Stable Added By: Kacey Gill Add to Current Problems: NO ProblemStatus: Resolve screening; unspecified; Location: None Progress: Stable Added By: Kacey Gill Add to Current Problems: YES ProblemStatus: Resolve Normal in multigravida 11/07/2015 Overview (04/15/2025): Medical visit for normal ; Location: None Progress: Stable Added By: Kacey Gill Add to Current Problems: YES ProblemStatus: Resolve Encounter for supervision of other normal , third trimester; Progress: Stable Added By: Kacey Gill Add to Current Problems: NO ProblemStatus: Resolve Acute vaginitis 08/25/2015 Overview (04/15/2025): Acute vaginitis; Progress: Stable Added By: Indiana Harris Add to Current Problems: NO ProblemStatus: Resolve Dysmenorrhea 08/25/2015 Overview (04/15/2025): Dysmenorrhea; Location: None Progress: Stable Added By: Indiana Harris Add to Current Problems: YES ProblemStatus: Resolve Excessive and frequent menstruation with irregul ar cycle 08/25/2015 Overview (04/15/2025): Excessive and frequent menstruation with irregular cycle; Progress: Stable Added By: Indiana Harris Add to Current Problems: NO ProblemStatus: Resolve Irregular intermenstrual bleeding 08/25/2015 Overview (04/15/2025): Metrorrhagia; Location: None Progress: Stable Added By: Indiana Harris Add to Current Problems: YES ProblemStatus: Resolve Immunizations Immunization Administration Dates Next Due Influenza Quadrivalent, Pres ervative Free 08/30/2021,09/03/2018,08/25/2016,08/25,12/31/2012 MMR 06/21/2016 Pneumococcal Polysaccharide PPV23 06/25/2018 Tdap 06/21/2016,04/19/2016,12/31/2012 Family History Medical History Relation Name Comments Cancer Maternal Aunt kidney Diabetes Other Paternal Great Grandparents Relation Name Status Comments Maternal Aunt Other Social History Tobacco Use Types Packs/Day Years Used Date Smoking Tobacco: Former Passive Smoke Exposure: Never Smokeless Tobacco: Never Tobacco Cessation:Counseling Given: No Alcohol Use Standard Drinks/Week Comments Not Currently 0 (1 standard drink = 0.6 oz pur e alcohol) socially Alcohol Use Answer Date Recorded Frequency of Alcohol Consumption Not on file 04/15/2024 Average Number of Drinks Not on file 024 Frequency of Binge Drinking Not on file 04/05 Alcohol Use Status Not Currently 04/15/2024 Average alcohol consumption Not on file 04/05 Comments No Sex and Gender Information Value Date Recorded Sex Assigned at Female 10/30/2024 11:57 AM [employer] Legal Sex Female 8:55 AM CDT Gender Identity Female 10/30/2024 11:57 AM [employer] Sexual Orientation Not on file Last Filed Vital Signs Vital Sign Reading Time Taken Comments Blood Pressure 110/72 08/30/2021 1:36 PM CDT Pulse 107 08/30/2021 1:36 PM CDT Temperature 36.4 C (97.5 F) 08/30/2021 1:36 PM CDT Respiratory Rate 18 02/02/2021 2:51 PM CDT Oxygen Saturation 98% 08/30/2021 1:36 PM CDT Inhaled Oxygen Concentration - - Weight 68 kg (150 lb) 04/15/2025 8:51 AM CDT Height 160 cm (5' 3) 04/15/2025 8:51 AM CDT Body Mass Index 26.57 04/15/2025 8:51 AM CDT Plan of Treatment Health Maintenance Due Date Last Done Comments HIV Screening 1990 Hepatitis C Screening ages 18 to 79 once 1990 DEPRESSION SCREENING 2002 HPV VACCINES (1 - 3-dose series) 2005 BMI Above/Below Normal Parameters 2008 Diabetes Screening 2008 HEPATITIS B VACCINES (1 of 3 - 19+ 3-dose series) 2009 CERVICAL CANCER SCREENING 2011 Varicella Vaccine (1 of 2 - 13+ 2-dose series) 07/19/2016 YEARLY WELLNESS EXAM 09/14/2023 09/14/2022 Influenza Vaccine 06/05/2025 08/30/2021, , 09/03/2018, Additional history exists COVID-19 Immunization ( season) 2025 ADULT TETANUS 06/21/2026 06/21/2016, 04/05, 12/31/2012 Zoster Vaccine (Recombinant Vaccine) (1 of 2) 2040 MMR VACCINES Completed 06/21/2016 Pneumococcal Vaccine: Peds to 50 & At-Risk Patients Aged Out 12/26/2021, 06/25/2018 No longer el igible based on patient's age to complete this topic HEPATITIS A VACCINES Aged Out No long er eligible based on patient's age to complete this topic HIB VACCINES Aged Out No longer eligi ble based on patient's age to complete this topic IPV VACCINES Aged Out No longer eligi ble based on patient's age to complete this topic MENINGOCOCCAL VACCINE Aged Out No raymond vibha eligible based on patient's age to complete this topic Meningococcal B Vaccine Aged Out No l onger eligible based on patient's age to complete this topic ROTAVIRUS VACCINES Aged Out No longer eligible based on patient's age to complete this topic Insurance [employer] [place] [employer] [place] Care Teams Customer Services Supervisor Relationship Specialty Start Date End Date Jose Martin Gray NP [address] [place] [address] PCP - General Nurse Practitioner-Family 08/26/19
--- OUTSIDE RECORDS SUMMARY | 2025-10-16 02:25 | XMS_ITS | Clinical Summary ---
Author Organization [facility] Virtual Care Address [address] [place] [phone] Phone Care Team Providers Care School Guidance Counselor Name Role Phone David Vegas NP Primary Care Provider Allergies Active Allergy Reactions Criticality Noted Date Comments Aripiprazole Other (See comments) Low 11/24/2014 - SUICIDAL THOUGHTS SUICIDAL THOUGHTS - SUICIDAL THOUGHTS Corticosteroids (Glucocorticoids) Other (See comments) 05/26/2025 Gastric sleeve Duloxetine Other (See comments),Rash Medium 08/16/2015 - Cymbalta - Gabapentin Diarrhea Low 04/19/2022 Nsaids (Non-Steroidal Anti-Inflammatory Drug) Other (See comments) 05/26/2025 Had gastric sleeve Sumatriptan Other (See comments),Palpitati ons Medium 11/24/2014 - IMITREX Heart race Heart race - IMITREX Medications multivitamin with iron tablet Take 1 tablet by mouth daily Active HYDROcodone-nehemias taminophen (NORCO) 10-325 mg per tablet Take 1 tablet by mouth 2 (two) times a day as needed 5 Active phenazopyridine (PYRIDIUM) 200 mg tablet Take 1 tablet (200 mg total) by mouth 3 (three) times a day 0 Active albuterol HFA (PROVENTIL HFA,VENTOLIN HFA,PROAIR HFA) 90 mcg/actuation inhaler 2 puffs every 6 (six) hours as needed for wheezing Active naloxone (NARCAN) 4 mg/actuation spray,non-aeros ol Active hydrOXYzine (ATARAX) 25 mg tablet Take 1 tablet (25 mg total) by mouth 3 (three) times a day as needed 5 Active spironolactone (ALDACTONE) 25 mg tablet Take 2 tablets (50 mg total) by mouth 2 (two) times a day 5 Active dicyclomine (BENTYL) 10 mg capsule Take 1 capsule (10 mg total) by mouth Active omeprazole (PriLOSEC) 20 mg capsule Take 1 capsule (20 mg total) by mouth daily 5 Active cyclobenzaprine (FLEXERIL) 10 mg tablet Take 1 tablet (10 mg total) by mouth 3 (three) times a day as needed 5 Active zolpidem (AMBIEN) 10 mg tablet Take 1 tablet (10 mg total) by mouth nightly as needed for sleep Active clindamycin-maggie zoyl peroxide (BENZACLIN) gel Apply topically 2 (two) times a day 5 Active Active Problems No known active problems Social History Tobacco Use Types Packs/Day Years Used Date Smoking Tobacco: Never Assessed Hunger Vital Sign Answer Date Recorded Within the past 12 months, y ou worried that your food would run out before you got the money to buy more. Never true 05/26/20 25 Within the past 12 months, t he food you bought just didn't last and you didn't have money to get more. Never true 05/26/2025 Comments Unknown Sex and Gender Information Value Date Recorded Sex Assigned at Not on file Legal Sex Female 9:53 PM CDT Gender Identity Not on file Sexual Orientation Not on file Last Filed Vital Signs Vital Sign Reading Time Taken Comments Blood Pressure 127/83 05/26/2025 1:15 PM CDT Pulse 105 05/26/2025 1:15 PM CDT Temperature 35.6 C (96 F) 05/26/2025 1:15 PM CDT Respiratory Rate 16 05/26/2025 1:15 PM CDT Oxygen Saturation 99% 05/26/2025 1:15 PM CDT Inhaled Oxygen Concentration - - Weight 69.5 kg (153 lb 3.2 oz) 05/26/2025 1:15 P M CDT Height 157.5 cm (5' 2) 05/26/2025 1:15 PM CDT Body Mass Index 28.02 05/26/2025 1:15 PM CDT Plan of Treatment Health Maintenance Due Date Last Done Comments Cervical Cancer Screening 1990 Depression Screening 1990 Hepatitis C Screening 1990 Varicella Vaccines (1 of 2 - 13+ 2-dose series) 2003 Regular Well Visit/Exam 18-64 2008 HPV Vaccines (1 - 3-dose SCDM series) 2017 Influenza Vaccine (#1) 2025 , 09/03/2018, 08/25/2016, Additional history exists DTaP/Tdap/Td Vaccine (9 - Td or Tdap) 06/21/2026 06/21/2016, 04/19/2016, 12/31/2012, Additional history exists Hepatitis B Screening Completed 03/11/2002 , 10/08/2001, 04/24/2000 Pneumococcal vaccine <65 Aged Out 12/26/2021, 06/06 No longer eligible based on patient's age to complete this topic Insurance [facility] Member Subscriber Plan / Payer (Ef fective 2020-Present) Name:Martha Lofton Relation to Subscriber:Self Name:Martha Lofton Payer ID:[id number] (NAIC) Group ID:Not on file Type:MEDICAID RISK OTHER Address: [facility] [id number] [place] [id number] Care Teams School Guidance Counselor Relationship Specialty Start Date End Date David Vegas NP [address] [facility] [place] [address] PCP - General Family Medicine 02/13/25
--- OUTSIDE RECORDS SUMMARY | 2025-10-16 02:25 | XMS_ITS | Encounter Summary ---
Author Organization [facility] Address [address] [place] [address] Care Team Providers Care Parliamentary Archivist Name Role Phone David Vegas TAMMI Primary Care Provider [phone] Encounter Details Date Type Department Care Team ([facility] Contact Info) Description 02/16/2019 Orders Only [facility] Medical Group Family Medicine [address] [place] [phone] Samy Travis MD [address] [place] [address] Social History Tobacco Use Types Packs/Day Years Used Date Smoking Tobacco: Every Day Cigarettes 1 11 Smokeless Tobacco: Never Alcohol Use Standard Drinks/Week Comments Yes 0 (1 standard drink = 0.6 oz pur e alcohol) Socially/Rarely Comments No Sex and Gender Information Value Date Recorded Sex Assigned at Female 05/11/2022 9:16 AM CDT Legal Sex Female 9:12 PM CDT Gender Identity Female 05/11/2022 9:16 AM CDT Sexual Orientation Straight 05/11/2022 9: 16 AM CDT 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 Not on file Not on jhonatan e documented as of this encounter Plan of Treatment Upcoming Encounters Date Type Department Care Team (Late Contact Info) Description 11/18/2025 11:30 AM FERRULER Office Visit [facility] Interventional Pain Management [address] [place] [address] Brant Portillo PA [address] [place] [address] 11/25/2025 9:00 AM FERRULER Office Visit [facility] Medical Group Family Medicine [address] [place] [address] David Vegas NP [address] [place] [address] documented as of this encounter Visit Diagnoses Not on filedocumented in this encounter Additional Health Concerns Infection Onset Date Last Indicated Resolved Time PreProcedure Screening COVID-19 10/02/2021 10/02/2021 7:13 PM FERRULER R/O COVID-19 11/08/2021 11/08/2021 11/08/2021 11:0 0 AM FERRULER R/O Resp Infection 11/08/2021 11/08/2021 10:59 AM FERRULER COVID-19 11/08/2021 11/08/2021 02/06/2022 12:2 1 AM CDT R/O COVID-19 05/10/2022 05/10/2022 05/10/2022 9:45 AM CDT R/O COVID-19 05/10/2022 05/10/2022 05/10/2022 10:3 4 AM CDT R/O COVID-19 Comment:Covid negative 05/10/22 0945 05/11/2022 05/11/2022 05/11/2022 3:04 AM C DT R/O COVID-19 06/25/2024 06/25/2024 06/25/2024 10:0 3 AM CDT R/O GI Infection 06/25/2024 06/25/2024 06/25/2024 12:13 PM CDT COVID-19 06/25/2024 06/25/2024 09/23/2024 12:2 1 AM FERRULER documented as of this encounter Care Teams Parliamentary Archivist Relationship Specialty Start Date End Date David Vegas NP [address] [place] [address] PCP - General Nurse Practitioner 08/31/25 documented as of this encounter
--- OUTSIDE RECORDS SUMMARY | 2025-10-16 02:25 | XMS_ITS | Encounter Summary ---
Author Organization [facility] Address [facility] [place] [address] Care Team Providers Care Jailkeeper Name Role Phone David Vegas NP Primary Care Provider [phone] Reason for Visit * Reason Onset Date Comments Med Refill 12/10/2023 Encounter Details Date Type Department Care Team (Late st Contact Info) Description 12/10/2023 Refill [facility] Medical Group Family Medicine [address] [place] [phone] Coni Chavez, HUMAN RESOURCES COMPLIANCE MANAGER [address] [place] [address] Anxiety; Acute bilateral low back pain with bilateral sciatica Social History Tobacco Use Types Packs/Day Years [...] 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 Not on file Not on jhonatan e documented as of this encounter Plan of Treatment Upcoming Encounters Date Type Department Care Team (Late st Contact Info) Description 11/18/2025 11:30 AM DENTAL SERVICE CHIEF Office Visit [facility] Interventional Pain Management [address] [place] [address] Brant Portillo PA [address] [place] [address] 11/25/2025 9:00 AM DENTAL SERVICE CHIEF Office Visit [facility] Medical Group Family Medicine [address] [place] [address] David Vegas NP [address] [place] [address] documented as of this encounter Visit Diagnoses Diagnosis Anxiety Anxiety state, unspecified Acute bilateral low back pain with bilateral sciatica documented in this encounter Additional Health Concerns Infection Onset Date Last Indicated Resolved Time R/O COVID-19 06/25/2024 06/25/2024 06/25/2024 10:0 3 AM CDT R/O GI Infection 06/25/2024 06/25/2024 06/25/2024 12:13 PM CDT COVID-19 06/25/2024 06/25/2024 09/23/2024 12:2 1 AM DENTAL SERVICE CHIEF documented as of this encounter Care Teams Jailkeeper Relationship Specialty Start Date End Date David Vegas NP [address] [place] [address] PCP - General Nurse Practitioner 08/31/25 documented as of this encounter
--- OUTSIDE RECORDS SUMMARY | 2025-10-16 02:25 | XMS_ITS | Encounter Summary ---
Author Organization [facility] Address [facility] [place] [address] Care Team Providers Care Low Altitude Air Defense Gunner Name Role Phone David Vegas TELETYPIST Primary Care Provider [phone] Encounter Details Date Type Department Care Team (Late st Contact Info) Description 09/03/2025 Results Follow-Up [facility] Medical Group Family Medicine [address] [place] [phone] David Vegas NP [address] [place] [address] Bilateral digital screening mammogram Social History Tobacco Use Types Packs/Day Years Used Date Smoking Tobacco: Former Cigarettes 0.3 16.4 2 005 - 04/18/2021 Passive Smoke Exposure: Past Smokeless Tobacco: Never Alcohol Use Standard Drinks/Week [...] Date Recorded Patient Health Questionnaire-2 Score 0 08/25/2025 Hunger Vital Sign Answer Date Recorded Within [...] 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 Not on file Not on jhonatan e documented as of this encounter Plan of Treatment Upcoming Encounters Date Type Department Care Team (Late st Contact Info) Description 11/18/2025 11:30 AM POLYGRAPH TECHNICIAN Office Visit [facility] Interventional Pain Management [address] [place] [address] Brant Portillo PA [address] [place] [address] 11/25/2025 9:00 AM POLYGRAPH TECHNICIAN Office Visit [facility] Medical Group Family Medicine [address] [place] [address] David Vegas NP [address] [place] [address] documented as of this encounter Visit Diagnoses Not on filedocumented in this encounter Care Teams Low Altitude Air Defense Gunner Relationship Specialty Start Date End Date David Vegas NP [address] [place] [address] PCP - General Nurse Practitioner 08/31/25 documented as of this encounter
--- OUTSIDE RECORDS SUMMARY | 2025-10-16 02:25 | XMS_ITS | Encounter Summary ---
Author Organization [facility] Address [address] [place] [address] Care Team Providers Care Vamp Stitcher Name Role Phone David Vegas NP Primary Care Provider [phone] Reason for Visit * Reason Onset Date Comments Back Pain 07/13/2025 Encounter Details Date Type Department Care Team (Late st Contact Info) Description 07/13/2025 Telephone [facility] Interventional Pain Management [address] [place] [address] Brant Portillo PA [address] [place] [address] Back Pain Social History Tobacco Use Types Packs/Day Years [...] Date Recorded Patient Health Questionnaire-2 Score 0 04/09/2025 Hunger Vital Sign Answer Date Recorded Within [...] 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 * Telephone Encounter - Luly Apple - 07/13/2025 1:30 PM CDT Patient called wanting to see if she can get in sooner than 1016, she is having worse pain than before her ablation, please advise, thanks! documented in this encounter Plan of Treatment Upcoming Encounters Date Type Department Care Team (Late st Contact Info) Description 11/18/2025 11:30 AM SERVER MANAGER Office Visit [facility] Interventional Pain Management [address] [place] [address] Brant Portillo PA [address] [place] [address] 11/25/2025 9:00 AM SERVER MANAGER Office Visit [facility] Medical Group Family Medicine [address] [place] [address] David Vegas NP [address] [place] [address] documented as of this encounter Visit Diagnoses Not on filedocumented in this encounter Care Teams Vamp Stitcher Relationship Specialty Start Date End Date David Vegas NP [address] [place] [address] PCP - General Nurse Practitioner 08/31/25 documented as of this encounter
--- OUTSIDE RECORDS SUMMARY | 2025-10-16 02:25 | XMS_ITS | Encounter Summary ---
Author Organization [facility]care Address [address] [place] [address] Care Team Providers Care Senior Security Analyst Name Role Phone David Vegas TAMMI Primary Care Provider [phone] Reason for Visit * Reason Onset Date Comments Med Refill 11/09/2018 Encounter Details Date Type Department Care Team ([facility] Contact Info) Description 11/09/2018 Refill [facility] Family Medicine [address] [place] [address] Samy Travis MD [address] [place] [address] Social History Tobacco Use Types Packs/Day Years [...] 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 Not on file Not on jhonatan e documented as of this encounter Plan of Treatment Upcoming Encounters Date Type Department Care Team ([facility] Contact Info) Description 11/18/2025 11:30 AM STORE CLERK CASHIER Office Visit [facility] Interventional Pain Management [address] [place] [address] Brant Portillo PA [address] [place] [address] 11/25/2025 9:00 AM STORE CLERK CASHIER Office Visit [facility] Medical [facility] Family Medicine [address] [place] [address] David Vegas NP [address] [place] [address] documented as of this encounter Visit Diagnoses Not on filedocumented in this encounter Additional Health Concerns Infection Onset Date Last Indicated Resolved Time PreProcedure Screening COVID-19 10/02/2021 10/02/2021 7:13 PM STORE CLERK CASHIER R/O COVID-19 11/08/2021 11/08/2021 11/08/2021 11:0 0 AM STORE CLERK CASHIER R/O Resp Infection 11/08/2021 11/08/2021 10:59 AM STORE CLERK CASHIER COVID-19 11/08/2021 11/08/2021 02/06/2022 12:2 1 AM CDT R/O COVID-19 05/10/2022 05/10/2022 05/10/2022 9:45 AM CDT R/O COVID-19 05/10/2022 05/10/2022 05/10/2022 10:3 4 AM CDT R/O COVID-19 Comment:Covid negative 05/10/22 0945 05/11/2022 05/11/2022 05/11/2022 3:04 AM C DT R/O COVID-19 06/25/2024 06/25/2024 06/25/2024 10:0 3 AM CDT R/O GI Infection 06/25/2024 06/25/2024 06/25/2024 12:13 PM CDT COVID-19 06/25/2024 06/25/2024 09/23/2024 12:2 1 AM STORE CLERK CASHIER documented as of this encounter Care Teams Senior Security Analyst Relationship Specialty Start Date End Date David Vegas NP [address] [place] [address] PCP - General Nurse Practitioner 08/31/25 documented as of this encounter
--- OUTSIDE RECORDS SUMMARY | 2025-10-16 02:25 | XMS_ITS | Encounter Summary ---
Author Organization [facility] Address [address] [place] [address] Care Team Providers Care Dispatcher Radio Name Role Phone Shasta David TAMMI Primary Care Provider [phone] Encounter Details Date Type Department Care Team (Late st Contact Info) Description 11/07/2021 Orders Only [facility] [address] [place] [phone] Vicky Fiore MD [address] [place] [address] [id number] Bariatric surgery status (Primary Dx); Vitamin D deficiency Social History Tobacco Use Types Packs/Day Years Used Date Smoking Tobacco: Former Cigarettes 0.3 16.2 2 005 - 02/03/2021 Smokeless Tobacco: Never Alcohol Use Standard Drinks/Week Comments Yes 0 (1 standard drink = 0.6 oz pur e alcohol) rarely AUDIT-C Answer Date Recorded Frequency of Alcohol [...] 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 No / Unsure 11/08/2021 9:54 AM BUSINESS ANALYTICS FACULTY MEMBER documented as of this encounter Plan of Treatment Upcoming Encounters Date Type Department Care Team (Late st Contact Info) Description 11/18/2025 11:30 AM BUSINESS ANALYTICS FACULTY MEMBER Office Visit [facility] Interventional Pain Management [address] [place] [address] Brant Portillo PA [address] [place] [address] 11/25/2025 9:00 AM BUSINESS ANALYTICS FACULTY MEMBER Office Visit [facility] Medical Group Family Medicine [address] [place] [address] David Vegas NP [address] [place] [address] documented as of this encounter Visit Diagnoses Diagnosis Bariatric surgery status- Primary Vitamin D deficiency documented in this encounter Additional Health Concerns Infection Onset Date Last Indicated Resolved Time R/O COVID-19 11/08/2021 11/08/2021 11/08/2021 11:0 0 AM BUSINESS ANALYTICS FACULTY MEMBER R/O Resp Infection 11/08/2021 11/08/2021 10:59 AM BUSINESS ANALYTICS FACULTY MEMBER COVID-19 11/08/2021 11/08/2021 02/06/2022 12:2 1 AM CDT R/O COVID-19 05/10/2022 05/10/2022 05/10/2022 9:45 AM CDT R/O COVID-19 05/10/2022 05/10/2022 05/10/2022 10:3 4 AM CDT R/O COVID-19 Comment:Covid negative 05/10/22 0945 05/11/2022 05/11/2022 05/11/2022 3:04 AM C DT R/O COVID-19 06/25/2024 06/25/2024 06/25/2024 10:0 3 AM CDT R/O GI Infection 06/25/2024 06/25/2024 06/25/2024 12:13 PM CDT COVID-19 06/25/2024 06/25/2024 09/23/2024 12:2 1 AM BUSINESS ANALYTICS FACULTY MEMBER documented as of this encounter Care Teams Dispatcher Radio Relationship Specialty Start Date End Date David Vegas NP [address] [place] [address] PCP - General Nurse Practitioner 08/31/25 documented as of this encounter
--- OUTSIDE RECORDS SUMMARY | 2025-10-16 02:25 | XMS_ITS | Encounter Summary ---
Author Organization [facility] al[facility]care Address [address] [place] [address] Care Team Providers Care Drupal Architect Name Role Phone David Vegas CUTTER WET MACHINE Primary Care Provider [phone] Encounter Details Date Type Department Care Team (Late st Contact Info) Description 09/09/2025 Results Follow-Up [facility] Family Medicine [address] [place] [phone] David Vegas, TAMMI [address] [place] [address] Urinalysis, Culture if Indicated, CMP, Lipid Panel Reflex to LDL, Direct, Additional followed-up results: 2 Social History Tobacco Use Types Packs/Day Years [...] 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 This is a cheaper medication so shouldn't be a problem. ER ROOM CLERK * Telephone Encounter - David Vegas NP - 10/06/2025 3:06 PM CST We do not have samples of this medication. ER ROOM CLERK documented in this encounter Plan of Treatment Upcoming Encounters Date Type Department Care Team (Late st Contact Info) Description 11/18/2025 11:30 AM LOCKER ROOM CLERK Office Visit [facility] Interventional Pain Management [address] [place] [phone] Brant Portillo PA [address] [place] [address] 11/25/2025 9:00 AM LOCKER ROOM CLERK Office Visit [facility] Family Medicine [address] [place] [address] David Vegas NP [address] [place] [address] documented as of this encounter Visit Diagnoses Not on filedocumented in this encounter Care Teams Drupal Architect Relationship Specialty Start Date End Date David Vegas NP [address] [place] [address] PCP - General Nurse Practitioner 08/31/25 documented as of this encounter
--- OUTSIDE RECORDS SUMMARY | 2025-10-16 02:25 | XMS_ITS | Encounter Summary ---
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 file Not on jhonatan e documented as of this encounter Plan of Treatment Upcoming Encounters Date Type Department Care Team (Late st Contact Info) Description 11/18/2025 11:30 AM TRAUMA DIRECTOR Office Visit [facility] Interventional Pain Management [address] [place] [address] Brant Portillo PA [address] [place] [address] 11/25/2025 9:00 AM TRAUMA DIRECTOR Office Visit [facility] Medical Group Family Medicine [address] [place] [address] David Vegas NP [address] [place] [address] documented as of this encounter Visit Diagnoses Not on filedocumented in this encounter Care Teams Elementary Classroom Teacher Relationship Specialty Start Date End Date David Vegas NP [address] [place] [address] PCP - General Nurse Practitioner 08/31/25 documented as of this encounter
--- OUTSIDE RECORDS SUMMARY | 2025-10-16 02:25 | XMS_ITS | Encounter Summary ---
Author Organization 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 Not on jhonatan e documented as of this encounter Plan of Treatment Upcoming Encounters Date Type Department Care Team (Late Contact Info) Description 11/18/2025 11:30 AM AIRFLIGHT ATTENDANTS SUPERVISOR Office Visit [facility] Interventional Pain Management [address] [place] [address] Brant Portillo PA [address] [place] [address] 11/25/2025 9:00 AM AIRFLIGHT ATTENDANTS SUPERVISOR Office Visit [facility] Medical [facility] Family Medicine [address] [place] [address] David Vegas NP [address] [place] [address] documented as of this encounter Visit Diagnoses Not on filedocumented in this encounter Additional Health Concerns Infection Onset Date Last Indicated Resolved Time PreProcedure Screening COVID-19 10/02/2021 10/02/2021 7:13 PM AIRFLIGHT ATTENDANTS SUPERVISOR R/O COVID-19 11/08/2021 11/08/2021 11/08/2021 11:0 0 AM AIRFLIGHT ATTENDANTS SUPERVISOR R/O Resp Infection 11/08/2021 11/08/2021 10:59 AM AIRFLIGHT ATTENDANTS SUPERVISOR COVID-19 11/08/2021 11/08/2021 02/06/2022 12:2 1 AM CDT R/O COVID-19 05/10/2022 05/10/2022 05/10/2022 9:45 AM CDT R/O COVID-19 05/10/2022 05/10/2022 05/10/2022 10:3 4 AM CDT R/O COVID-19 Comment:Covid negative 05/10/22 0945 05/11/2022 05/11/2022 05/11/2022 3:04 AM C DT R/O COVID-19 06/25/2024 06/25/2024 06/25/2024 10:0 3 AM CDT R/O GI Infection 06/25/2024 06/25/2024 06/25/2024 12:13 PM CDT COVID-19 06/25/2024 06/25/2024 09/23/2024 12:2 1 AM AIRFLIGHT ATTENDANTS SUPERVISOR documented as of this encounter Care Teams Mail Machine Operator Relationship Specialty Start Date End Date David Vegas NP [address] [place] [address] PCP - General Nurse Practitioner 08/31/25 documented as of this encounter
--- OUTSIDE RECORDS SUMMARY | 2025-10-16 02:25 | XMS_ITS | Encounter Summary ---
Author Organization 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 Not on file Not on jhonatan e documented as of this encounter Plan of Treatment Upcoming Encounters Date Type Department Care Team (Late st Contact Info) Description 11/18/2025 11:30 AM RESTAURANT LINE SERVER Office Visit [facility] Interventional Pain Management [address] [place] [address] Brant Portillo PA [address] [place] [address] 11/25/2025 9:00 AM RESTAURANT LINE SERVER Office Visit [facility] Family Medicine [address] [place] [address] David Vegas NP [address] [place] [address] documented as of this encounter Visit Diagnoses Diagnosis Acute bilateral low back pain with bilateral sciatica documented in this encounter Additional Health Concerns Infection Onset Date Last Indicated Resolved Time R/O COVID-19 06/25/2024 06/25/2024 06/25/2024 10:0 3 AM CDT R/O GI Infection 06/25/2024 06/25/2024 06/25/2024 12:13 PM CDT COVID-19 06/25/2024 06/25/2024 09/23/2024 12:2 1 AM RESTAURANT LINE SERVER documented as of this encounter Care Teams Product Tester Relationship Specialty Start Date End Date David Vegas NP [address] [place] [address] PCP - General Nurse Practitioner 08/31/25 documented as of this encounter
--- OUTSIDE RECORDS SUMMARY | 2025-10-16 02:25 | XMS_ITS | Clinical Summary ---
Author Organization [facility] Address [facility] [place] [address] Care Team Providers Care Java Web Services Developer Name Role Phone Nascalli David TAMMI Primary Care Provider [phone] Allergies Active Allergy Reactions Criticality Noted Date Comments Aripiprazole Confusion/delerium Low 11/24/2014 - SUICIDAL THOUGHTS Corticosteroids (Glucocorticoids) Other (see comments) Medium 05/26/2025 Gastric sleeve Duloxetine Other (see comments),Rash Medium 08/16/2015 - Cymbalta - Duloxetine Hcl Rash Medium - Gabapentin Diarrhea Low 04/19/2022 Nsaids (Non-Steroidal Anti-Inflammatory Drug) Other (see comments) Medium 05/26/2025 Had gastric sleeve Sumatriptan Palpitations Medium 11/24/2014 - IMITREX Medications albuterol HFA 90 mcg/actuation inhaler Inhale 2 puffs every 6 (six) hours as needed for wheezing Active FERROUS FUMARATE ORAL Take 1 tablet by mouth daily Active spironolactone (Aldactone) 25 mg tabletIndicatio ns:Acne vulgaris Take 2 tablets (50 mg total) by mouth 2 (two) times a day 120 tablet 5 5 Active omeprazole (PriLOSEC) 20 mg capsuleIndicati ons:Chronic bilateral low back pain with right-sided sciatica Take 1 capsule (20 mg total) by mouth daily 90 capsule 5 Active clindamycin-maggie zoyl peroxide (Benzaclin) gelIndications: Acne vulgaris Apply topically 2 (two) times a day 25 g 5 Active hydrOXYzine (ATARAX) 25 mg tabletIndicatio ns:Anxiety Take 1 tablet (25 mg total) by mouth 3 (three) times a day as needed for anxiety 60 tablet 1 5 Active cyclobenzaprine (FLEXERIL) 10 mg tabletIndicatio ns:Acute bilateral low back pain with bilateral sciatica Take 1 tablet (10 mg total) by mouth 3 (three) times a day as needed for muscle spasms 90 tablet 1 5 11/28/19 26 Active HYDROcodone-nehemias taminophen (NORCO) 10-325 mg per tabletIndicatio ns:Chronic bilateral low back pain with sciatica, sciatica laterality unspecified Take 1 tablet by mouth 2 (two) times a day as needed for moderate pain or severe pain 60 tablet 5 Active doxepin 3 mg tabletIndicatio ns:Insomnia, unspecified type Take 3 mg by mouth daily 30 tablet 11 5 Active spironolactone (Aldactone) 25 mg tabletIndicatio ns:Acne vulgaris Take 2 tablets (50 mg total) by mouth 2 (two) times a day 120 tablet 5 5 09/29/20 25 Discontinu ed(Reorder *) omeprazole (PriLOSEC) 20 mg capsuleIndicati ons:Chronic bilateral low back pain with right-sided sciatica Take 1 capsule (20 mg total) by mouth daily 90 capsule 5 09/29/20 25 Discontinu ed(Reorder *) clindamycin-maggie zoyl peroxide (Benzaclin) gelIndications: Acne vulgaris Apply topically 2 (two) times a day 25 g 5 09/29/20 25 Discontinu ed(Reorder *) hydrOXYzine (ATARAX) 25 mg tabletIndicatio ns:Anxiety Take 1 tablet (25 mg total) by mouth 3 (three) times a day as needed for anxiety 60 tablet 1 5 09/29/20 25 Discontinu ed(Reorder *) cyclobenzaprine (FLEXERIL) 10 mg tabletIndicatio ns:Acute bilateral low back pain with bilateral sciatica Take 1 tablet (10 mg total) by mouth 3 (three) times a day as needed for muscle spasms 90 tablet 1 5 09/29/20 25 Discontinu ed(Reorder *) HYDROcodone-nehemias taminophen (NORCO) 10-325 mg per tabletIndicatio ns:Chronic bilateral low back pain with sciatica, sciatica laterality unspecified Take 1 tablet by mouth 2 (two) times a day as needed for moderate pain or severe pain 60 tablet 5 09/29/20 25 Discontinu ed(Reorder *) suvorexant (Belsomra) 10 mg tabletIndicatio ns:Insomnia due to medical condition Take 10 mg by mouth nightly as needed (insomnia) 30 tablet 5 10/15/20 25 Discontinu ed(Cost of medication ) Active Problems Problem Noted Date Diagnosed Date Sacroiliitis 11/06/2024 Lumbar spondylosis 03/20/2024 Anxiety 10/05/2023 Herniated nucleus pulposus, L4-5 right Panniculitis 08/15/2022 Overview (08/15/2022): Added automatically from request for surgery [id number] Calculus of distal left ureter 05/10/2022 Overview (05/10/2022): Added automatically from request for surgery [id number] Hydronephrosis, left 05/10/2022 SIRS (systemic inflammatory response syndrome) 0 05/10/2022 Intractable pain 05/10/2022 Recurrent pneumonia 01/09/2022 S/P laparoscopic sleeve gastrectomy 10/19/2021 Pre-op evaluation 05/25/2021 Overview (05/25/2021): Added automatically from request for surgery [id number] Complicated UTI (urinary tract infection) 2019 Kidney calculus 04/05/2020 Flank pain 12/03/2019 Chronic interstitial cystitis without hematuria 08/11/2019 Gross hematuria 04/09/2019 Overview (04/09/2019): Added automatically from request for surgery [id number] Follicular cyst of ovary 09/22/2018 Overview (07/01/2024): Ovarian cyst; Progress: Stable Added By: Symone Ramos Add to Current Problems: NO ProblemStatus: Resolve Ovarian cyst; Location: None Progress: Stable Added By: Symone Ramos Add to Current Problems: YES ProblemStatus: Current Unspecified ovarian cysts; Progress: Stable Added By: Symone Ramos Add to Current Problems: NO ProblemStatus: Resolve H/O: hysterectomy 06/25/2018 Diarrhea 02/20/2018 Overview (07/01/2024): Diarrhea, unspecified; Progress: Stable Added By: Kelly Olivera Add to Current Problems: NO ProblemStatus: Resolve Diarrhea; Location: None Progress: Stable Added By: Kelly Olivera Add to Current Problems: YES ProblemStatus: Resolve Dysuria 02/15/2018 Overview (07/01/2024): Dysuria; Progress: Stable Added By: Nisha Ly Add to Current Problems: NO ProblemStatus: Resolve Painful micturition, unspecified; Progress: Stable Added By: Nisha Ly Add to Current Problems: NO ProblemStatus: Resolve Endometriosis of uterus 09/10/2016 Overview (07/01/2024): Endometriosis of uterus; Location: None Progress: Stable Added By: Terri Alfaro Add to Current Problems: YES ProblemStatus: Resolve Menorrhagia 08/09/2016 Overview (07/01/2024): Menorrhagia; Progress: Stable Added By: Kelly Olivera Add to Current Problems: NO ProblemStatus: Resolve Abdominal pain 12/16/2015 Overview (07/01/2024): Abdominal cramping; Severity: Moderate Progress: Stable Added By: Kelly Olivera Add to Current Problems: NO ProblemStatus: Resolve Pelvic and perineal pain 12/16/2015 Overview (07/01/2024): Pelvic and perineal pain; Severity: Moderate Progress: Stable Added By: Lety Melo Add to Current Problems: YES ProblemStatus: Current 12/16/2015 Overview (07/01/2024): Incidental ; Location: None Progress: Stable Added By: Kerrie Underwood Add to Current Problems: YES ProblemStatus: Resolve 36 weeks gestation of 11/07/2015 Overview (07/01/2024): 36 weeks gestation of ; Progress: Stable [...] ProblemStatus: Resolve Normal in multigravida 11/07/2015 Overview (07/01/2024): Medical visit for normal ; Location: None Progress: Stable Added By: Kacey Gill Add to Current Problems: YES ProblemStatus: Resolve Encounter for supervision of other normal , third trimester; Progress: Stable Added By: Kacey Gill Add to Current Problems: NO ProblemStatus: Resolve Acute vaginitis 08/25/2015 Overview (07/01/2024): Acute vaginitis; Progress: Stable Added By: Indiana Harris Add to Current Problems: NO ProblemStatus: Resolve Dysmenorrhea 08/25/2015 Overview (07/01/2024): Dysmenorrhea; Location: None Progress: Stable Added By: [place] Harris Add to Current Problems: YES ProblemStatus: Resolve Irregular intermenstrual bleeding 08/25/2015 Overview (07/01/2024): Metrorrhagia; Location: None Progress: Stable Added By: [place] Harris Add to Current Problems: YES ProblemStatus: Resolve Depression with anxiety Polyarthritis Chronic migraine Class 1 obesity in adult Resolved Problems Problem Noted Date Diagnosed Date Resolved Date Acute pyelonephritis 08/15/2018 018 Frequent urination 08/13/2017 7 Burning with urination 08/13/201710/18 Encounters Date Type Department Care Team Description 10/15/2025 Orders Only [address] [address] David Vegas NP Insomnia, unspecified type (Primary Dx) 09/29/[address] [address] David Vegas NP Acne vulgaris; Chronic bilateral low back pain with right-sided sciatica; Anxiety; Acute bilateral low back pain with bilateral sciatica; Chronic bilateral low back pain with sciatica, sciatica laterality unspecified 09/23/[address] [address] David Vegas NP Prior Auth 09/09/2025 Results Follow-Up [address] [address] David Vegas NP Urinalysis, Culture if Indicated, CMP, Lipid Panel Reflex to LDL, Direct, Additional followed-up results: 2 09/03/2025 9:59 AM CDT - 09/03/2025 11:59 PM CDT Hospital Encounter [facility] [address] [place] [id number] Encounter for screening mammogram for malignant neoplasm of breast Discharge Disposition: Home self care 09/03/2025 Results Follow-Up [address] [address] David Vegas NP Bilateral digital screening mammogram 08/25/2025 9:00 AM CDT Office Visit [address] [address] David Vegas NP Lumbar spondylosis (Primary Dx); Chronic bilateral low back pain with sciatica, sciatica laterality unspecified; Insomnia due to medical condition; Need for influenza vaccination; Hair loss; Overweight (BMI 25.0-29.9) 08/17/2025 Refill [facility] [address] [place] [address] David Vegas NP Anxiety; Acute bilateral low back pain with bilateral sciatica; Insomnia due to medical condition; Chronic bilateral low back pain with sciatica, sciatica laterality unspecified 07/24/2025 8:08 AM CDT - 07/24/2025 8:27 AM CDT Surgery [address] [address] Shady Perez MD L5-S1 EPIDURAL STEROID INJECTION (92825) [26867 (CPT )] 07/24/2025 6:58 AM CDT - 07/24/2025 8:35 AM CDT Hospital Encounter [address] [phone] [id number] Shady Perez MD Lumbar radiculopathy (Primary Dx) Discharge Disposition: Home self care 07/18/2025 Orders Only [facility] [address] [place] [address] Shady Perez MD 07/18/2025 Orders Only [facility] [address] [place] [address] Shady Perez MD from Last 3 Months Immunizations Immunization Administration Dates Next Due DTP 07/05/1995, 3,03/19/1992,12/20,1990 Hep B, Adolescent or Pediatric 03/11/2002,2000,04/24/2000 HiB 03/11/1993 Influenza (IM) Quad PF 08/30/2021,2015,08/25/2015,12/31 Influenza, split virus, trivalent, PF 08/25/2025 ,09/03/2018 MMR 06/21/2016,07/10/1995,03/19/1992 OPV 07/05/1995, 3,03/19/1992,12/20,1990 Pneumococcal Polysaccharide PPSV23 12/26/2021, Tdap 06/21/2016,04/19/2016,12/31/2012 Family History Medical History Relation Name Comments Kidney disease Father Mom Kidney cancer Father's Brother Kidney cancer Father's Sister Stroke Maternal Grandfather Mom Arthritis Maternal Grandmother Sophie Thyroid disease Maternal Grandmother Sophie Knox's disease Mother Mom Anesthesia problems Mother Mom SLOW TO WAKE Deep vein thrombosis Mother Mom Heart disease Mother Mom HOLE IN HEART Kidney disease Mother Mom Kidney disease Mother's Sister Mom Deep vein thrombosis Paternal Grandmother Diabetes type II Paternal Grandmother DELIA disease Paternal Grandmother Heart disease Paternal Grandmother Deep vein thrombosis paternal great-grandparent Relation Name Status Comments Father Mom Father's Brother Father's Sister Maternal Grandfather Mom Maternal Grandmother Sophie Mother Mom Mother's Sister Mom Paternal Grandmother paternal great-grandparent Social History Tobacco Use Types Packs/Day Years Used Date Smoking Tobacco: Former Cigarettes 0.3 16.4 2 005 - 04/18/2021 Passive Smoke Exposure: Past Smokeless Tobacco: Never Tobacco Cessation:Counseling Given: No Alcohol Use Standard Drinks/Week Comments Yes 0 [...] 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 Not on file Not on file Not on jhonatan e Last Filed Vital Signs Vital Sign Reading Time Taken Comments Blood Pressure 110/60 08/25/2025 8:52 AM CDT Pulse 72 08/25/2025 8:52 AM CDT Temperature 36.4 C (97.5 F) 08/25/2025 8:52 AM CDT Respiratory Rate 18 08/25/2025 8:52 AM CDT Oxygen Saturation 99% 08/25/2025 8:52 AM CDT Inhaled Oxygen Concentration - - Weight 74.5 kg (164 lb 3.2 oz) 08/25/2025 8:52 A M CDT Height 160 cm (5' 3) 08/25/2025 8:52 AM CDT Body Mass Index 29.09 08/25/2025 8:52 AM CDT Plan of Treatment Upcoming Encounters Date Type Department Care Team (Late st Contact Info) Description 11/18/2025 11:30 AM PILOT PLANT RESEARCH TECHNICIAN Office Visit [facility] [address] [place] [address] Brant Portillo PA [address] [place] [address] 11/25/2025 9:00 AM PILOT PLANT RESEARCH TECHNICIAN Office Visit [facility] [address] [place] [address] David Vegas NP [address] [place] [address] Health Maintenance Due Date Last Done Comments HPV Vaccines (1 - 3-dose SCDM series) 2017 Pap Smear 06/21/2019 06/21/2016 COVID-19 Vaccine (1 - 2024- season) 2025 DTaP,Tdap,and Td Vaccines (9 - Td or Tdap) 06/21/2026 06/21/2016, 04/19/2016, 12/31/2012, Additional history exists Depression Screening 08/25/2026 08/25/2025 RSV Vaccines and 60 Years or Older (1 - 1-dose 75+ series) 2065 HIB Vaccines Completed 03/11/1993 IPV Vaccines Completed 07/05/1995, 05/1993, 03/19/1992, Additional history exists Hepatitis B Vaccines Completed 03/11/2002, 10/08/2001, 04/24/2000 MMR Vaccines Completed 06/21/2016, 03/1995, 03/19/1992 AMB Pneumococcal 0-49 yrs Aged Out 12/26/2021, No longer eligible based on patient's age to complete this topic Influenza Vaccine Completed 08/25/2025, , 09/03/2018, Additional history exists Hepatitis A Vaccines Aged Out No long er eligible based on patient's age to complete this topic Meningococcal ACWY Vaccine Aged Out N o longer eligible based on patient's age to complete this topic Meningococcal B Vaccine Aged Out No l onger eligible based on patient's age to complete this topic RSV Vaccines <20 Months Aged Out No l onger eligible based on patient's age to complete this topic Varicella Vaccines Discontinued Medical Devices Implanted Type Area Inside Sales Manager Device Identifier Shelf Expiration Date Model / Serial / Lot Reload Tri-Staple 2.0 B 45 Axt - Sna - [id number] Implanted:Qt y: 1 on 10/04/2021 by Vicky Fiore MD at [facility] Bariatrics N/A: Abdomen [employer] COVIDIEN [id number] 03/04/2024 SIGTRSB4 5AXT / NA / [id number] Reload Tri-Staple 2.0 B 60 Amt - Sna - [id number] Implanted:Qt y: 1 on 10/04/2021 by Vicky Fiore MD at [facility] Bariatrics N/A: Abdomen [employer] COVIDIEN [id number] 04/04/2024 SIGTRSB6 0AMT / NA / [id number] Reload Tri-Staple 2.0 B 60 Axt - Sna - [id number] Implanted:Qt y: 1 on 10/04/2021 by Vicky Fiore MD at [facility] Bariatrics N/A: Abdomen [employer] COVIDIEN [id number] 01/03/2024 SIGTRSB6 0AXT / NA / [id number] Reload Tri-Staple 2.0 B 60 Amt - Sna - [id number] Implanted:Qt y: 1 on 10/04/2021 by Vicky Fiore MD at [facility] Bariatrics N/A: Abdomen [employer] COVIDIEN [id number] 05/04/2024 SIGTRSB6 0AMT / NA / [id number] Reload Tri-Staple 2.0 B 60 Amt - Sna - [id number] Implanted:Qt y: 1 on 10/04/2021 by Vicky Fiore MD at [facility] Bariatrics N/A: Abdomen [employer] COVIDIEN [id number] 04/04/2024 SIGTRSB6 0AMT / NA / [id number] Clip Histologist 10mm M/L Ethicon - Sna - [id number] Implanted:Qt y: 1 on 10/04/2021 by Vicky Fiore MD at [facility] Elie and Clips N/A: Abdomen J and J ENDOSCOPY [id number] 05/04/2025 [id number] / NA / [id number] Clip Histologist W/15 Lg Ti Clips - [id number] - [id number] Implanted:Qt y: 1 on 10/16/2022 by Shilpa Mullins MD at [facility] Kersey and Clips N/A: Abdomen [employer] COVIDIEN 11/04/2026 [id number] / NA Stent Contour Ureteral [id number] - Sna - [id number] Implanted:Qt y: 1 on 05/10/2022 by Temo La MD at [facility] Urology Left: Ureter [employer]I 01/12/2024 [id number] / NA / [id number] Procedures Procedure Name Priority Date/Time Associated Diagnosis Comments CBC AUTOMATED Routine 09/17/2025 9:38 AM PILOT PLANT RESEARCH TECHNICIAN Loss of weight FOLATE Routine 09/17/2025 9:38 AM PILOT PLANT RESEARCH TECHNICIAN Loss of weight VITAMIN B12 Routine 09/17/2025 9:38 AM PILOT PLANT RESEARCH TECHNICIAN Loss of weight VITAMIN B1, WHOLE BLOOD Routine 09/17/2025 9:38 AM PILOT PLANT RESEARCH TECHNICIAN Loss of weight IRON SATURATION PANEL Routine 09/17/2025 9:38 AM PILOT PLANT RESEARCH TECHNICIAN Loss of weight COPPER Routine 09/17/2025 9:38 AM PILOT PLANT RESEARCH TECHNICIAN Loss of weight CBC AND DIFFERENTIAL Routine 09/17/2025 9:38 AM PILOT PLANT RESEARCH TECHNICIAN Loss of weight BASIC METABOLIC PANEL Routine 09/17/2025 9:38 AM PILOT PLANT RESEARCH TECHNICIAN Loss of weight PREALBUMIN Routine 09/17/2025 9:38 AM PILOT PLANT RESEARCH TECHNICIAN Loss of weight ALBUMIN Routine 09/17/2025 9:38 AM PILOT PLANT RESEARCH TECHNICIAN Loss of weight CBC AUTOMATED Routine 09/08/2025 8:01 AM PILOT PLANT RESEARCH TECHNICIAN Hair loss Overweight (BMI 25.0-29.9) TSH REFLEX TO FT4 Routine 09/08/2025 8:0 1 AM PILOT PLANT RESEARCH TECHNICIAN Hair loss LIPID PANEL REFLEX TO LDL, DIRECT Routine 09/08/2025 8:01 AM PILOT PLANT RESEARCH TECHNICIAN Overweight (BMI 25.0-29.9) CMP Routine 09/08/2025 8:01 AM PILOT PLANT RESEARCH TECHNICIAN Hair loss Overweight (BMI 25.0-29.9) CBC AND DIFFERENTIAL Routine 09/08/2025 8:01 AM PILOT PLANT RESEARCH TECHNICIAN Hair loss Overweight (BMI 25.0-29.9) URINALYSIS, CULTURE IF INDICATED Routine 09/08/2025 8:01 AM PILOT PLANT RESEARCH TECHNICIAN UTI symptoms BI SCREENING BILATERAL Routine 09/03/2025 10:19 AM CDT Encounter for screening mammogram for malignant neoplasm of breast XR PAIN MANAGEMENT INJECTION Routine 07/24/2025 8:28 AM CDT Lumbar radiculopathy HI NJX DX/THER SBST INTRLMNR LMBR/SAC W/IMG GDN 07/24/2025 8:16 AM CDT Lumbar radiculopathy from Last 3 Months Results * (ABNORMAL) Copper (09/17/2025 9:38 AM PILOT PLANT RESEARCH TECHNICIAN) Copper, Serum/Plasma 76.5(L) 80.0 - 155.0 ug/dL 09/19/2025 3:26 PM PILOT PLANT RESEARCH TECHNICIAN [facility] Comment: INTERPRETIVE INFORMATION: Copper, Serum or Plasma Elevated results may be due to skin or collection-related contamination, including the use of a noncertified metal-free collection/transport tube. If contamination concerns exist due to elevated levels of serum/plasma copper, confirmation with a second specimen collected in a certified metal-free tube is recommended. Serum copper may be elevated with infection, inflammation, stress, and copper supplementation. In females, elevated copper may also be caused by oral contraceptives and (concentrations may be elevated up to 3 times normal during the third trimester). This test was developed and its performance characteristics determined by [facility]. It has not been cleared or approved by the [place] Food and Drug Administration. This test was performed in a CLIA certified laboratory and is intended for clinical purposes. Performed By: [facility] [address] [place] [id number] Leaf Blender: Justino Larsen MD, PhD CLIA Number: [id number] Blood Venous blood specimen / Unknown Venipuncture / Unknown 09/17/2025 9:38 AM PILOT PLANT RESEARCH TECHNICIAN 09/17/2025 9:38 AM PILOT PLANT RESEARCH TECHNICIAN Narrative [facility] - 09/19/2025 3:26 PM PILOT PLANT RESEARCH TECHNICIAN Source: Unconfirmed Specimen Start Date: [id number] us Jonathan Carmona MD LAB BLOOD ORDERABLES Final Res ult [facility] [address] [place] [address] * Iron Saturation Panel (09/17/2025 9:38 AM PILOT PLANT RESEARCH TECHNICIAN) [facility] Iron (Fe) 129 37 - 170 ug/dL 09/17/2025 5:14 PM [facility] Total Iron Binding Capacity 359 ug/dL 09/17/2025 5:14 PM [facility] UIBC 230 155 - 355 ug/dL 09/17/2025 5:14 PM [facility] Iron Saturation 36 20 - 50 % 5:14 PM [facility] Blood Venous blood specimen / Unknown Venipuncture / Unknown 09/17/2025 9:38 AM PILOT PLANT RESEARCH TECHNICIAN 09/17/2025 9:38 AM PILOT PLANT RESEARCH TECHNICIAN us Jonathan Carmona MD LAB BLOOD ORDERABLES Final Res ult Performing Organization Address City/[facility]/ZIP Co de Phone Number [facility] [address] [address] * CBC Automated (09/17/2025 9:38 AM PILOT PLANT RESEARCH TECHNICIAN) Only the most recent of2 resultswithin the time period is included. White Blood Count 7.8 4.0 - 10.5 10*3/uL 09/17/2025 4:54 PM [facility] Red Blood Count 4.32 4.20 - 5.40 10*6/uL 09/17/2025 4:54 PM [facility] Nucleated RBCs Relative 0.00 % 09/17/2025 4:54 PM [facility] Nucleated RBCs Absolute 0.00 0.00 - 0.02 10*3/uL 09/17/2025 4:54 PM [facility] Hemoglobin 13.7 12.5 - 16.0 g/dL 09/17/2025 4:54 PM [facility] Hematocrit 40.1 37.0 - 47.0 % 09/17/2025 4:54 PM [facility] MCV 92.8 78.0 - 100.0 fL 09/17/2025 4:54 PM [facility] MCH 31.7 27.0 - 37.0 pg 09/17/2025 4:54 PM [facility] MCHC 34.2 32.0 - 36.0 g/dL 09/17/2025 4:54 PM [facility] SD 40.4 36.4 - 46.3 fL 09/17/2025 4:54 PM [facility] Red Cell Distribution Width 11.8 11.5 - 14.5 % 09/17/2025 4:54 PM [facility] Platelet Count 271 150 - 450 10*3/uL 09/17/2025 4:54 PM [facility] Mean Platelet Volume 9.7 6.0 - 10.8 fL 09/17/2025 4:54 PM [facility] Neutrophils Relative 65.7 % 09/17/2025 4:54 PM [facility] Immature Granulocytes Relative 0.1 % 09/17/2025 4:54 PM [facility] Lymphocytes Relative 25.1 % 09/17/2025 4:54 PM [facility] Monocytes Relative 7.6 % 09/17/2025 4:54 PM [facility] Eosinophils Relative 0.6 % 09/17/2025 4:54 PM [facility] Basophils Relative 0.9 % 09/17/2025 4:54 PM [facility] Neutrophils Absolute 5.13 1.50 - 6.60 10*3/uL 09/17/2025 4:54 PM [facility] Immature Granulocytes Absolute 0.01 0.00 - 0.20 10*3/uL 09/17/2025 4:54 PM [facility] Lymphocytes Absolute 1.96 1.00 - 3.50 10*3/uL 09/17/2025 4:54 PM [facility] Monocytes Absolute 0.59 0.00 - 1.00 10*3/uL 09/17/2025 4:54 PM [facility] Eosinophils Absolute 0.05 0.00 - 0.70 10*3/uL 09/17/2025 4:54 PM PILOT PLANT RESEARCH TECHNICIAN [facility] Basophils Absolute 0.07 0.00 - 0.10 10*3/uL 09/17/2025 4:54 PM PILOT PLANT RESEARCH TECHNICIAN [facility] Blood Venous blood specimen / Unknown Venipuncture / Unknown 09/17/2025 9:38 AM PILOT PLANT RESEARCH TECHNICIAN 09/17/2025 9:38 AM PILOT PLANT RESEARCH TECHNICIAN Jonathan Carmona MD LAB BLOOD ORDERABLES Final Res ult [address] [address] * Vitamin B1, Whole Blood (09/17/2025 9:38 AM PILOT PLANT RESEARCH TECHNICIAN) [facility] Vitamin B1, Whole Blood 154 70 - 180 nmol/L 09/20/2025 7:55 PM PILOT PLANT RESEARCH TECHNICIAN [facility] Comment: INTERPRETIVE INFORMATION: Vitamin B1, Whole Blood This assay measures the concentration of thiamine diphosphate (TDP), the primary active form of vitamin B1. Approximately 90 percent of vitamin B1 present in whole blood is TDP. Thiamine and thiamine monophosphate, which comprise the remaining 10 percent, are not measured. This test was developed and its performance characteristics determined by [facility]. It has not been cleared or approved by the [place] Food and Drug Administration. This test was performed in a CLIA certified laboratory and is intended for clinical purposes. Performed By: [facility] [address] [place] [address] Leaf Blender: Justino Larsen MD, PhD CLIA Number: [id number] Blood Venous blood specimen / Unknown Venipuncture / Unknown 09/17/2025 9:38 AM PILOT PLANT RESEARCH TECHNICIAN 09/17/2025 9:38 AM PILOT PLANT RESEARCH TECHNICIAN Narrative [facility] - 09/20/2025 7:55 PM PILOT PLANT RESEARCH TECHNICIAN Source: Unconfirmed Specimen Start Date: Jonathan Carmona MD LAB BLOOD ORDERABLES Final Res ult Performing Organization Address City/[facility]/ZIP Co de Phone Number [facility] [address] [place] [address] * Prealbumin (09/17/2025 9:38 AM PILOT PLANT RESEARCH TECHNICIAN) Prealbumin 31.0 17.0 - 34.0 mg/dL 09/17/2025 11:05 PM [facility] Blood Venous blood specimen / Unknown Venipuncture / Unknown 09/17/2025 9:38 AM PILOT PLANT RESEARCH TECHNICIAN 09/17/2025 9:38 AM PILOT PLANT RESEARCH TECHNICIAN us Jonathan Carmona MD LAB BLOOD ORDERABLES Final Res ult [address] [address] * Folate (09/17/2025 9:38 AM PILOT PLANT RESEARCH TECHNICIAN) Folate 22.50 >=5.90 ng/mL 09/17/2025 7:46 PM [facility] Blood Venous blood specimen / Unknown Venipuncture / Unknown 09/17/2025 9:38 AM PILOT PLANT RESEARCH TECHNICIAN 09/17/2025 9:38 AM PILOT PLANT RESEARCH TECHNICIAN us Jonathan Carmona MD LAB BLOOD ORDERABLES Final Res ult Performing Organization Address [facility]/ZIP Co de Phone Number [address] [address] * Vitamin B12 (09/17/2025 9:38 AM PILOT PLANT RESEARCH TECHNICIAN) Vitamin B12 199 180 - 914 pg/mL 09/17/2025 7:44 PM [facility] Blood Venous blood specimen / Unknown Venipuncture / Unknown 09/17/2025 9:38 AM PILOT PLANT RESEARCH TECHNICIAN 09/17/2025 9:38 AM PILOT PLANT RESEARCH TECHNICIAN us Jonathan Carmona MD LAB BLOOD ORDERABLES Final Res ult Performing Organization Address City/[facility]/ZIP Co de Phone Number [address] [address] * Albumin (09/17/2025 9:38 AM PILOT PLANT RESEARCH TECHNICIAN) Albumin 4.58 3.50 - 5.70 g/dL 09/17/2025 5:10 PM [facility] Blood Venous blood specimen / Unknown Venipuncture / Unknown 09/17/2025 9:38 AM PILOT PLANT RESEARCH TECHNICIAN 09/17/2025 9:38 AM PILOT PLANT RESEARCH TECHNICIAN Jonathan Carmona MD LAB BLOOD ORDERABLES Final Res ult [facility] [address] [address] * Basic Metabolic Panel (09/17/2025 9:38 AM PILOT PLANT RESEARCH TECHNICIAN) Pathologist [facility] Sodium 141 136 - 145 mmol/L 09/17/2025 5:10 PM [facility] Potassium 4.3 3.3 - 4.9 mmol/L 09/17/2025 5:10 PM [facility] Chloride 106 98 - 107 mmol/L 09/17/2025 5:10 PM [facility] Carbon Dioxide 27 21 - 31 mmol/L 09/17/2025 5:10 PM [facility] Blood Urea Nitrogen 14 7 - 25 mg/dL 09/17/2025 5:10 PM [facility] Creatinine 0.90 0.60 - 1.30 mg/dL 09/17/2025 5:10 PM [facility] Glucose 88 74 - 109 mg/dL 09/17/2025 5:10 PM [facility] Calcium 9.5 8.6 - 10.3 mg/dL 09/17/2025 5:10 PM [facility] GFR Estimate (CKD-EPI) 85 >=60 mL/min/1.7 3m2 09/17/2025 5:10 PM [facility] Comment:Calculation based on the Chronic Kidney Disease Epidemiology Collaboration (CKD-EPI) equation refit without adjustment for race. Anion Gap Without K 8 2 - 15 mmol/L 09/17/2025 5:10 PM [facility] Blood Venous blood specimen / Unknown Venipuncture / Unknown 09/17/2025 9:38 AM PILOT PLANT RESEARCH TECHNICIAN 09/17/2025 9:38 AM PILOT PLANT RESEARCH TECHNICIAN us Jonathan Carmona MD LAB BLOOD ORDERABLES Final Res ult [facility] [address] [address] * (ABNORMAL) Lipid Panel Reflex to LDL, Direct (09/08/2025 8:01 AM PILOT PLANT RESEARCH TECHNICIAN) Triglycerides 85 <150 mg/dL 09/08/2025 5:15 PM [facility] Comment: Result Interpretation: Triglyceride Risk Classification (National Cholesterol Education Program (NCEP), Adult Treatment Panel, ATP III Guidelines, 2001)(10) <150 mg/dL Normal 150-199 mg/dL Borderline High 200-499 mg/dL High >=500 mg/dL Very High Cholesterol 177 <200 mg/dL 09/08/2025 5:15 PM [facility] Comment: Result Interpretation: Total Cholesterol Risk Classification(National Cholesterol Education Program (NCEP), Adult Treatment Panel, ATP III Guidelines, 2001)(10) < 200 mg/dL Desirable 200 - 239 mg/dL Borderline High >=240 mg/dL High HDL Cholesterol 56 >=40 mg/dL 09/08/2025 5:15 PM [facility] Comment: Result Interpretation: The National Cholesterol Education Program (NCEP), Adult Treatment Panel, ATP III Guidelines (2001)(10) classify HDL- C levels as follows: < 40 mg/dL as indicative of a major risk factor for Coronary Heart Disease. > 60 mg/dL as a negative risk factor for Coronary Heart Disease. LDL Cholesterol (Calc) 104(H) <100 mg/dL 09/08/2025 5:15 PM [facility] Comment: LDL calculation is performed using the Friedewald Equation Result Interpretation: The National Cholesterol Education Program (NCEP), Adult Treatment Panel, ATP III Guidelines (2001)(10) classify LDL-C levels as follows: < 100 mg/dL Optimal 100 - 129 mg/dL Near optimal/above optimal 130 - 159 mg/dL Borderline high 160 - 189 mg/dL High >=190 mg/dL Very High Blood Venous blood specimen / Unknown Venipuncture / Unknown 09/08/2025 8:01 AM PILOT PLANT RESEARCH TECHNICIAN 09/08/2025 8:01 AM PILOT PLANT RESEARCH TECHNICIAN [facility] CONFERENCE CENTER COORDINATOR LAB BLOOD ORDERABLES Final Resu lt Performing Organization Address City/[facility] Co de Phone Number [address] [address] * TSH Reflex to FT4 (09/08/2025 8:01 AM PILOT PLANT RESEARCH TECHNICIAN) TSH 0.72 0.45 - 5.33 mIU/L 09/08/2025 5:29 PM [facility] Blood Venous blood specimen / Unknown Venipuncture / Unknown 09/08/2025 8:01 AM PILOT PLANT RESEARCH TECHNICIAN 09/08/2025 8:01 AM PILOT PLANT RESEARCH TECHNICIAN [facility] LAB BLOOD ORDERABLES Final Resu lt Performing Organization Address [facility] de Phone Number [address] [address] * Urinalysis, Culture if Indicated (09/08/2025 8:01 AM PILOT PLANT RESEARCH TECHNICIAN) Color, Urine Colorless Colorless, Light-Yellow , Yellow, Dark-Yellow 09/08/2025 5:07 PM [facility] Appearance, Urine Clear Clear 09/08/2025 5:07 PM [facility] Specific [place],Urine 1.009 1.010 - 1.025 09/08/2025 5:07 PM [facility] pH,Urine 7.0 5 - 8 [PH] 09/08/2025 5:07 PM [facility] Leukocyte Esterase, Urine Negative Negative 09/08/2025 5:07 PM [facility] Nitrite, Urine Negative Negative 09/08/2025 5:07 PM [facility] Protein, Urine Negative Negative MG/DL 09/08/2025 5:07 PM [facility] Glucose, Urine Normal Normal/Negat tristen MG/DL 09/08/2025 5:07 PM [facility] Ketone Negative Negative MG/DL 09/08/2025 5:07 PM [facility] Urobilinogen Normal Normal MG/DL 09/08/2025 5:07 PM [facility] Occult Blood Urine Negative Negative 09/08/2025 5:07 PM [facility] Bilirubin, Urine Negative Negative 09/08/20 5:07 PM [facility] Urine Urine specimen obtained by clean catch procedure / Unknown Non-blood Collection / Unknown 09/08/2025 8:01 AM PILOT PLANT RESEARCH TECHNICIAN 09/08/2025 8:01 AM PILOT PLANT RESEARCH TECHNICIAN us David Vegas CONFERENCE CENTER COORDINATOR LAB URINE ORDERABLES Final Resu lt [facility] [address] [address] * (ABNORMAL) CMP (09/08/2025 8:01 AM PILOT PLANT RESEARCH TECHNICIAN) Sodium 139 136 - 145 mmol/L 09/08/2025 5:15 PM [facility] Potassium 4.1 3.3 - 4.9 mmol/L 09/08/2025 5:15 PM [facility] Chloride 104 98 - 107 mmol/L 09/08/2025 5:15 PM [facility] Carbon Dioxide 28 21 - 31 mmol/L 09/08/2025 5:15 PM [facility] Blood Urea Nitrogen 10 7 - 25 mg/dL 09/08/2025 5:15 PM [facility] Creatinine 0.50(L) 0.60 - 1.30 mg/dL 09/08/2025 5:15 PM [facility] Glucose 105 74 - 109 mg/dL 09/08/2025 5:15 PM [facility] Calcium 8.7 8.6 - 10.3 mg/dL 09/08/2025 5:15 PM [facility] AST/SGOT 13 13 - 39 U/L 09/08/2025 5:15 PM [facility] ALT/SGPT 16 7 - 52 U/L 09/08/2025 5:15 PM [facility] Alk Phos 34 34 - 104 U/L 09/08/2025 5:15 PM [facility] Total Protein 6.5 6.4 - 8.9 g/dL 09/08/2025 5:15 PM [facility] Albumin 3.94 3.50 - 5.70 g/dL 09/08/2025 5:15 PM [facility] Bilirubin,Total 0.8 0.3 - 1.0 mg/dL 09/08/2025 5:15 PM [facility] GFR Estimate (CKD-EPI) 125 >=60 mL/min/1. 73m2 09/08/2025 5:15 PM [facility] Comment:Calculation based on the Chronic Kidney Disease Epidemiology Collaboration (CKD-EPI) equation refit without adjustment for race. Anion Gap Without K 7 2 - 15 mmol/L 09/08/2025 5:15 PM [facility] Blood Venous blood specimen / Unknown Venipuncture / Unknown 09/08/2025 8:01 AM PILOT PLANT RESEARCH TECHNICIAN 09/08/2025 8:01 AM PILOT PLANT RESEARCH TECHNICIAN us David Vegas CONFERENCE CENTER COORDINATOR LAB BLOOD ORDERABLES Final Resu lt [facility] [address] [address] * Bilateral digital screening mammogram (09/03/2025 10:19 AM CDT) Anatomical Region Laterality Modality Breast Bilateral Mammography Narrative 09/03/2025 11:23 AM CDT EXAMINATION(S) PERFORMED Patient is seen for Bilateral digital screening mammogram. Study was evaluated with a computer aided detection (CAD) system and performed with 2D/3D mammography. INDICATIONS Martha Lofton is a 35 y.o. female and is being seen for Encounter for screening mammogram for malignant neoplasm of breast. No known family history of breast cancer. COMPARISON TO PREVIOUS EXAMINATION(S) Compared to: 02/20/2023 Breast Img ultrasound breast bilateral limited and 11/11/2018 Breast Img ultrasound breast bilateral limited FINDINGS There are scattered areas of fibroglandular density. Right There is no evidence of suspicious masses, calcifications, or other abnormal findings in the right breast. Left There is no evidence of suspicious masses, calcifications, or other abnormal findings in the left breast. IMPRESSION Right breast assessment: Negative. Left breast assessment: Negative. Routine Screening Mammogram at age 40 is recommended for both breasts. Overall BI-RADS category: 1 - Negative us Jonathan Carmona MD IMG BI PROCEDURES Final Result * X-ray pain management injection (07/24/2025 8:28 AM CDT) Narrative [facility] - 07/24/2025 10:07 AM CDT RADIOLOGY INTRAOPERATIVE PROCEDURE Fluoroscopic guidance images provided for assistance in pain management injection. Please refer to surgeon's notes for documentation. Radiology Department Shady Perez MD IMG XR PROCEDURES Final Result RADIOLOGY B from Last 3 Months Insurance ([facility]) [employer] ([facility]) [employer] Advance Directives For more information, please contact: [phone] * Full Code (Latest Code Status on File) Date Activated Date Inactivated Comments 10/16/2022 9:59 AM 10/17/2022 2:27 PM * Full Code Date Activated Date Inactivated Comments 05/11/2022 3:01 AM 05/14/2022 3:07 PM * Full Code Date Activated Date Inactivated Comments 05/10/2022 2:08 PM 05/10/2022 8:31 PM * Full Code Date Activated Date Inactivated Comments 05/10/2022 8:54 AM 05/10/2022 2:08 PM * Full Code Date Activated Date Inactivated Comments 10/04/2021 6:19 AM 10/06/2021 7:36 PM Care Teams Java Web Services Developer Relationship Specialty Start Date End Date David Vegas NP [address] [place] [address] PCP - General Nurse Practitioner 08/31/25
--- OUTSIDE RECORDS SUMMARY | 2025-10-16 02:25 | XMS_ITS | Encounter Summary ---
Author Organization [facility] althcare Address [facility] [place] [address] Care Team Providers Care Door To Door Sales Representative Name Role Phone David Vegas NP Primary Care Provider [phone] Reason for Referral * Medication Prior Authorization - Closed Specialty Diagnoses / Procedures Referred By Jaqueline t Referred To Contact Diagnoses Insomnia, unspecified type David Vegas NP [address] [place] [address] Phone: tel: fax: Referral ID Status Reason Start Date Expiration Date Visits Re quested Visits Authorized [id number] Closed 1 1 LEAD Encounter Details Date Type Department Care Team (Late st Contact Info) Description 10/15/2025 Orders Only [facility] Family Medicine [address] [place] [address] David Vegas NP [address] [place] [address] Insomnia, unspecified type (Primary Dx) Social History Tobacco Use Types [...] 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 Not on file Not on jhonatan e documented as of this encounter Plan of Treatment Upcoming Encounters Date Type Department Care Team (Late st Contact Info) Description 11/18/2025 11:30 AM TEAM LEAD Office Visit [facility] Interventional Pain Management [address] [place] [address] Brant Portillo PA [address] [place] [address] 11/25/2025 9:00 AM TEAM LEAD Office Visit [facility] Family Medicine [address] [place] [address] David Vegas NP [address] [place] [address], [place] [address] documented as of this encounter Visit Diagnoses Diagnosis Insomnia, unspecified type- Primary documented in this encounter Care Teams Door To Door Sales Representative Relationship Specialty Start Date End Date David Vegas NP [address] [place] [address] PCP - General Nurse Practitioner 08/31/25 documented as of this encounter
--- OUTSIDE RECORDS SUMMARY | 2025-10-16 02:25 | XMS_ITS | Encounter Summary ---
Author Organization [facility] althcare Address [address] [place] [address] Care Team Providers Care Wood Pole Treater Name Role Phone David Vegas TAMMI Primary Care Provider [phone] Reason for Visit * Reason Comments Med Refill Encounter Details Date Type Department Care Team ([facility] Contact Info) Description 01/23/2019 Refill [facility] Medical [facility] Family Medicine [address] [place] [phone] Samy Travis MD [address] [place] [address] Depression with anxiety Social History Tobacco Use Types Packs/Day Years [...] 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 Not on file Not on jhonatan e documented as of this encounter Plan of Treatment Upcoming Encounters Date Type Department Care Team (Late Contact Info) Description 11/18/2025 11:30 AM BALL WARPER TENDER Office Visit [facility] Interventional Pain Management [address] [place] [address] Brant Portillo PA [address] [place] [address] 11/25/2025 9:00 AM BALL WARPER TENDER Office Visit [facility] Medical Group Family Medicine [address] [place] [address] David Vegas NP [address] [place] [address] documented as of this encounter Visit Diagnoses Diagnosis Depression with anxiety Dysthymic disorder documented in this encounter Additional Health Concerns Infection Onset Date Last Indicated Resolved Time PreProcedure Screening COVID-19 10/02/2021 10/02/2021 7:13 PM BALL WARPER TENDER R/O COVID-19 11/08/2021 11/08/2021 11/08/2021 11:0 0 AM BALL WARPER TENDER R/O Resp Infection 11/08/2021 11/08/2021 10:59 AM BALL WARPER TENDER COVID-19 11/08/2021 11/08/2021 02/06/2022 12:2 1 AM CDT R/O COVID-19 05/10/2022 05/10/2022 05/10/2022 9:45 AM CDT R/O COVID-19 05/10/2022 05/10/2022 05/10/2022 10:3 4 AM CDT R/O COVID-19 Comment:Covid negative 05/10/22 0945 05/11/2022 05/11/2022 05/11/2022 3:04 AM C DT R/O COVID-19 06/25/2024 06/25/2024 06/25/2024 10:0 3 AM CDT R/O GI Infection 06/25/2024 06/25/2024 06/25/2024 12:13 PM CDT COVID-19 06/25/2024 06/25/2024 09/23/2024 12:2 1 AM BALL WARPER TENDER documented as of this encounter Care Teams Wood Pole Treater Relationship Specialty Start Date End Date David Vegas NP [address] [place] [address] PCP - General Nurse Practitioner 08/31/25 documented as of this encounter
--- OUTSIDE RECORDS SUMMARY | 2025-10-16 02:25 | XMS_ITS | Encounter Summary ---
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 Not on file Not on jhonatan e documented as of this encounter Plan of Treatment Upcoming Encounters Date Type Department Care Team (Late st Contact Info) Description 11/18/2025 11:30 AM VICE PRESIDENT FOR INSTRUCTION Office Visit [facility] Interventional Pain Management [address] [place] [address] Brant Portillo PA [address] [place] [address] 11/25/2025 9:00 AM VICE PRESIDENT FOR INSTRUCTION Office Visit [facility] Medical Group Family Medicine [address] [place] [address] David Vegas NP [address] [place] [address] documented as of this encounter Visit Diagnoses Diagnosis Acute bilateral low back pain with bilateral sciatica documented in this encounter Additional Health Concerns Infection Onset Date Last Indicated Resolved Time R/O COVID-19 06/25/2024 06/25/2024 06/25/2024 10:0 3 AM CDT R/O GI Infection 06/25/2024 06/25/2024 06/25/2024 12:13 PM CDT COVID-19 06/25/2024 06/25/2024 09/23/2024 12:2 1 AM VICE PRESIDENT FOR INSTRUCTION documented as of this encounter Care Teams Senior Project Controls Specialist Relationship Specialty Start Date End Date David Vegas NP [address] [place] [address] PCP - General Nurse Practitioner 08/31/25 documented as of this encounter
--- OUTSIDE RECORDS SUMMARY | 2025-10-16 02:25 | XMS_ITS | Encounter Summary ---
Author Organization [facility] althcare Address [address] [place] [address] Care Team Providers Care Second Hand Name Role Phone David Vegas NP Primary Care Provider [phone] Reason for Visit * Reason Comments Med Refill Encounter Details Date Type Department Care Team ([facility] st Contact Info) Description 12/14/2023 Refill [facility] Medical [facility] Family Medicine [address] [place] [phone] Lawanda Vaughn NP [address] [address] Class 1 obesity with serious comorbidity and body mass index (BMI) of 30.0 to 30.9 in adult, unspecified obesity type Social History Tobacco Use Types Packs/Day Years [...] 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 Pt herself did not request DPIPE TENDER * Telephone Encounter - Coni Chavez NP - 12/14/2023 2:58 PM CST Has not taken this medication in 6 months. Is she wanting to restart for weight loss purposes? DPIPE TENDER documented in this encounter Plan of Treatment Upcoming Encounters Date Type Department Care Team (Late st Contact Info) Description 11/18/2025 11:30 AM STANDPIPE TENDER Office Visit [facility] Interventional Pain Management [address] [place] [address] Brant Portillo PA [address] [place], [place] [id number] 11/25/2025 9:00 AM STANDPIPE TENDER Office Visit [facility] Medical Group Family Medicine [address] [place] [address] David Vegas NP [address] [place] [address] documented as of this encounter Visit Diagnoses Diagnosis Class 1 obesity with serious comorbidity and body mass index (BMI) of 30.0 to 30.9 in adult, unspecified obesity type documented in this encounter Additional Health Concerns Infection Onset Date Last Indicated Resolved Time R/O COVID-19 06/25/2024 06/25/2024 06/25/2024 10:0 3 AM CDT R/O GI Infection 06/25/2024 06/25/2024 06/25/2024 12:13 PM CDT COVID-19 06/25/2024 06/25/2024 09/23/2024 12:2 1 AM STANDPIPE TENDER documented as of this encounter Care Teams Second Hand Relationship Specialty Start Date End Date David Vegas NP [address] [place] [address] PCP - General Nurse Practitioner 08/31/25 documented as of this encounter
--- OUTSIDE RECORDS SUMMARY | 2025-10-16 02:25 | XMS_ITS | Encounter Summary ---
Author Organization [facility] althcare Address [address] [place] [address] Care Team Providers Care Passenger Relations Representative Name Role Phone David Vegas NP Primary Care Provider [phone] Encounter Details Date Type Department Care Team (Late st Contact Info) Description 04/15/2025 Orders Only [facility] Medical Group Neurology [address] 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 Not on file Not on jhonatan e documented as of this encounter Plan of Treatment Upcoming Encounters Date Type Department Care Team (Late st Contact Info) Description 11/18/2025 11:30 AM LINE PRODUCER Office Visit [facility] Interventional Pain Management [address] [place] [address] Brant Portillo PA [address] [place] [address] 11/25/2025 9:00 AM LINE PRODUCER Office Visit [facility] Medical Group Family Medicine [address] [place] [address] David Vegas NP [address] [place] [address] documented as of this encounter Procedures Procedure Name Priority Date/Time Associated Diagnosis Comments AMB REFERRAL TO ORTHOPEDIC SURGERY Routine 04/15/2025 Foraminal stenosis of lumbar region Sacroiliitis (HCC) Paresthesia of bilateral legs Lumbar radiculopathy documented in this encounter Results * Ambulatory referral to Orthopedic Surgery (04/15/2025) us Rasheed ANNE OUTPATIENT REFERRAL ORDERABL ES Final Result documented in this encounter Visit Diagnoses Diagnosis Foraminal stenosis of lumbar region Sacroiliitis (HCC) Sacroiliitis, not elsewhere classified Paresthesia of bilateral legs Lumbar radiculopathy Thoracic or lumbosacral neuritis or radiculitis, unspecified documented in this encounter Care Teams Passenger Relations Representative Relationship Specialty Start Date End Date David Vegas NP [address] [place] [address] PCP - General Nurse Practitioner 08/31/25 documented as of this encounter
[2025-10-16] MEDS: LACTATED RINGERS 1,000 ML 30 ML IV CONT ×2 (10:00→15:12)
[2025-10-16] MEDS: TRANEXAMIC ACID 1,000MG/ISO100 1,000 MG/100 ML BAG 200 MG IVPB (11:00)
[2025-10-16] MEDS: SCOPOLAMINE 1 MG PATCH 1 PATCH TRANSDERM (11:39)
--- NOTE | 2025-10-16 11:39 | WPDANESEPPF ---
Anes - Initial Pre Proc Eval Procedure: Operation Date: 10/16/25 12:00 Proposed Procedures p Bilateral Breast Mastopexy with Galaflex - Jonathan Carmona MD Date/Time: 10/16/25 11:39 Surgeon: Jonathan Carmona MD Pre Op Diagnosis: Breast Ptosis Patient Data Age: 35 Gender: F Height: 1.55 m Weight: 77 kg Last Vital Signs Temp 36.4 C 10/16/25 09:30 Pulse 80 10/16/25 09:30 Resp 18 10/16/25 09:30 BP 100/63 10/16/25 09:30 Pulse Ox 100 10/16/25 09:30 O2 Del Method Room Air 10/16/25 09:30 Allergies Allergy/AdvReac Type Severity Reaction Status Date / Time No Known Allergies Allergy Verified 10/16/25 10:31 Home Medications ?Medication ?Instructions ?Recorded ?Confirmed ?Type cyclobenzaprine 10 mg tablet 10 mg PO Q12H PRN muscle pain 10/12/25 10/16/25 History hydrocodone 10 mg-acetaminophen 1 tablet PO Q12H PRN pain 10/12/25 10/16/25 History 325 mg tablet hydroxyzine HCl 25 mg tablet 25 mg PO DAILY PRN anxiety 10/12/25 10/16/25 History omeprazole 20 mg capsule,delayed 20 mg PO DAILY PRN REFLUX 10/12/25 10/12/25 History release spironolactone 25 mg tablet 25 mg PO Q12H 10/12/25 10/16/25 History zolpidem 10 mg tablet 10 mg PO HS 10/12/25 10/16/25 History Laboratory Tests 10/16/25 09:41 Cotinine Negative Results Review: All pre-operative results and documents have been reviewed as part of the pre-operative evaluation. [facility] Past Medical History Medical History (Updated 10/16/25 @ 11:40 by Seth Muñoz DO) Back pain Osteoarthritis Anxiety Chronic, continuous use of opioids Surgical History Surgical History (Updated 10/16/25 @ 11:40 by Seth Muñoz DO) History of bariatric surgery 2020 Social History Social History Smoking packs per day: 0.25 Smoking cigarettes per day: 5.0 Years smoked: 20 Smoking pack-years: 5.00 Smoking status: Former smoker Tobacco type: cigarettes Smoking end date: 08/05/25 Alcohol intake: current Substance use: never Substance use type: does not use Living arrangements: with family Spiritual care concerns: No Anes - Eval Final PreProcedure Day of Procedure 10/16/25 11:39 Patient weight: obese Heart: regular rate and rhythm Lungs: clear to auscultation Airway: Mallampati scale class II Neurological: alert and oriented Last oral intake: >/= 8 hours ASA classification: III Emergent: no Anesthetic plan: proceed Anesthesia type and monitoring: general LMA and standard monitoring Results Review: All pre-operative results and documents have been reviewed as part of the pre-operative evaluation. Informed Consent: The patient's anesthetic plan and its attendant risks and benefits were discussed with the patient/family/POA. Questions were solicited and answers provided to the satisfaction of the patient/family/POA.
--- NOTE | 2025-10-16 11:57 | WPDHPUPDATE1 ---
History and Physical Update Update Date/Time: 10/16/25 11:57 History and Physical has been reviewed, including an updated exam of the patient. There are NO changes in the patient's condition. Risks, benefits, and alternatives have been discussed and questions answered. Patient agrees to proceed with procedure.
--- NOTE | 2025-10-16 11:58 | W.PM.PROC2 ---
Procedure Note - Detailed Date of Procedure 10/16/25 Pre-op Diagnosis Breast Ptosis Post-op Diagnosis Same Procedure Performed Bilateral mastopexy with Galaflex Surgeon Jonathan Carmona MD Anesthesia General Findings Inverted T Superior medial pedicle Lipoaspirate: 200 cc Description of Procedure She is here today for bilateral breast mastopexy. Previously and again today the risks, benefits, alternatives were discussed in extensive detail. I wanted her to be very realistic about the risks involved as well as expectations. We discussed aftercare and what to monitor for. Made sure answered all of her questions to her satisfaction today and consent was obtained. Marked in the preoperative holding area with her verification. The patient was taken to the operating room placed supine on the operating table. Anesthesia was provided by anesthesiology. A surgical time-out was taken. She was prepped and draped in a standard sterile fashion. Eleven blade was utilized to make a stab incision and infiltrated with low volume tumescent solution. The breast was tailor tacked into place. I tailor tacked the breast into position. Placed her in a sitting position. Verified the nipple-areolar location based on preoperative planning as well as intraoperative observations and measurements in full agreement. She was placed supine. I de-epithelialized the pedicle. I then de-epithelialized the inferior breast tissue to create an autoaugmentation flap based on intercostal surgical training specialist. Slightly reduced to right for symmetry. I elevated medial and lateral tissue flaps as well for planned closure. The autoaugmentation flap was sutured to the chest wall with 2-0 PDS. Galaflex was soaking in a betadine solution on the back table. It was trimmed and sutured into place with 2-0 Vicryl. Breast tacked into place. Suction lipectomy completed laterally to volume above with 4mm farhat in multiple planes / passes based on pre-operative planning, intraoperative observation, and rolling pinch. I closed along the IMF with 2-0 Stratafix. Along the vertical with 2-0 PDS. I closed around the areola with 3-0 stratafix. 3-0 Monocryl along the vertical. 3-0 Stratafix along the IMF. I finally closed everything with running subcuticular 4-0 Monocryl and tissue glue. Brijjits were utilized for the vertical incision. Fluffs and surgical bra were placed. Estimated Blood Loss 50 Drains No Packing No Pathology None sent Complications No immediate complications Condition Stable Disposition PACU
[2025-10-16] MEDS: ceFAZolin 2 GM in SODIUM CHLORIDE 0.9% IV 50 ML 100 ML IVPB (12:13)
[2025-10-16] MEDS: LACTATED RINGERS IRRIG 1,000 ML, LIDOCAINE 1% LOCAL INJ 50 ML, EPINEPHrine HCL INJ 1 MG... INFILTRATE (12:58)
[2025-10-16] MEDS: NACL 0.9% IRRIG POUR BOTTLE 900 ML, GENTAMICIN SULFATE INJ 160 MG, ceFAZolin 2 GM, POVI... IRRIGATION (12:58)
[2025-10-16] MEDS: HYDROmorphone HCL INJ (*CRX) 1 MG/ML SYR 0.5 MG IV PUSH ×6 (15:22→17:00)
[2025-10-16] MEDS: oxyCODONE HCL (*CRX) 5 MG TAB IR PO (16:41)
[2025-10-16] MEDS: ONDANSETRON INJ 4 MG/2 ML VIAL IV PUSH (17:41)
== END 2025-10-16 17:55 | disposition home or self-care (01) ==
PROVIDERS: Visit Provider Surgery Plastic and Reconstructive Surgery
PROC: (CPT 19316; principal; 2025-10-16 12:00)
DX: Z41.1 Encounter for cosmetic surgery (principal); N64.81 Ptosis of breast
CPT/HCPCS: 19316; 15777 ×2; 80307; J0690; A9270; J0166; J1100; J1171; J1200; J1580; J2003; J2250; J2405; J2704; J3010; J3290; J7120